=== PATIENT | female | born 1970 | race Caucasian/White ===

== ENCOUNTER 2022-04-08 00:59 | Emergency (ER) | payer MEDICAID, OTHER ==
[2022-04-08] MEDS ORDERED: ORPHENADRINE 60 MG/2 ML (NORFLEX) AMP (ED ONLY) IM STA (01:13)
[2022-04-08] MEDS ORDERED: KETOROLAC 60 MG/2 ML VIAL IM STA (01:13)
[2022-04-08] MEDS ORDERED: IBUP-1780 PO (01:19)
[2022-04-08] MEDS ORDERED: METH-732 PO (01:19)
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
[2022-04-08 01:22] VITALS: BP 132/83
== END 2022-04-08 01:24 | disposition home or self-care (01) ==
LOC: ER FS 01:02
DX: S16.1XXA Strain of muscle, fascia and tendon at neck level, initial encounter (principal); S46.812A Strain of other muscles, fascia and tendons at shoulder and upper arm level, left arm, initial encounter; G24.3 Spasmodic torticollis; Z28.310 Unvaccinated for COVID-19; V89.2XXA Person injured in unspecified motor-vehicle accident, traffic, initial encounter; Y92.410 Unspecified street and highway as the place of occurrence of the external cause
CPT/HCPCS: 99284

== ENCOUNTER 2022-05-18 17:07 | Inpatient (IN) | payer MEDICAID ==
[~2022-05-18] VITALS: Ht 157.5 cm; Wt 94.7 kg
[~2022-05-18 17:07] MED LIST: IBUP-1780 PO; METH-732 PO
[2022-05-18] MEDS ORDERED: morphine INJ 10 MG/ML 1ML (SYR OR VIAL) IVP STA (17:17)
--- NOTE | 2022-05-18 17:22 | ED Abdominal Pain ---
General Chief Complaint: Abdominal/GI Problems Stated Complaint: ABD PAIN,FEVER Source of Information: Patient Exam Limitations: No Limitations History of Present Illness Date Seen by Provider: May 18, 2022 Time Seen by Provider: 17:09 Initial Comments 52-year-old female with no pertinent past medical history coming in due to lower abdominal pain and concerns for fever. Started yesterday around 3 in the morning, woke her up, the pain is sharp, constant, nothing seems to make it better or worse. Has not taken anything for it as of yet. Does have nausea but no vomiting. Had a bowel movement this morning which was small. She states she had pain similar to this many years ago with a ruptured ovarian cyst, but did not have a fever at that time. Otherwise denies any dysuria, diarrhea, vaginal discharge, vaginal bleeding, chest pain, shortness of breath, cough, rash, or any other concerns. Has not had anything to eat today. Allergies and Home Medications Allergies Coded Allergies: No Known Drug Allergies (Unverified , 04/08/22) Patient Home Medication List Home Medication List Reviewed: Yes Ibuprofen (Ibuprofen) 800 Mg Tablet, 800 MG PO Q8H PRN for PAIN Prescribed by: LADONNA LUNA on 04/08/22118 Methocarbamol (Methocarbamol) 750 Mg Tablet, 1,500 MG PO Q8H PRN for neck/back spasm Prescribed by: LADONNA LUNA on 04/08/22118 Review of Systems Review of Systems Constitutional: fever EENTM: No Blurred Vision Respiratory: Denies Cough Cardiovascular: Denies Chest Pain Gastrointestinal: Abdominal Pain Genitourinary: Denies Burning Musculoskeletal: no symptoms reported Skin: no symptoms reported Psychiatric/Neurological: No Symptoms Reported Endocrine: No Symptoms Reported Hematologic/Lymphatic: No Symptoms Reported All Other Systems Reviewed Negative Unless Noted: Yes Past Ihzbxfd-Qloqsn-Wkaegg Hx Patient Social History Tobacco Use?: Yes Tobacco type used: Cigarettes Substance use?: No Alcohol Use?: No Past Medical History Surgery/Hospitalization HX: Anxiety Surgeries: Yes Appendectomy, Section, Gallbladder Physical Exam Vital Signs Vital Signs - First Documented 05/18/22 17:33 Temp 38.7 Pulse 136 Resp 20 B/P (MAP) 152/75 (100) Pulse Ox 94 O2 Delivery Room Air Capillary Refill : Height/Weight/BMI Height: '" Weight: lbs. oz. kg; BMI Method: General Appearance: WD/WN, mild distress HEENT: PERRL/EOMI, normal ENT inspection, pharynx normal Neck: non-tender, full range of motion, supple, normal inspection Respiratory: chest non-tender, lungs clear, normal breath sounds, no respiratory distress, no accessory muscle use Cardiovascular: no edema, no murmur, tachycardia Gastrointestinal: normal bowel sounds, soft; No distended, No guarding, No rebound; tenderness Extremities: normal range of motion, non-tender, normal inspection, no pedal edema, no calf tenderness, normal capillary refill Back: normal inspection, no CVA tenderness, no vertebral tenderness Neurologic/Psychiatric: no motor/sensory deficits, alert, normal mood/affect Skin: normal color, warm/dry Lymphatic: no adenopathy Focused Exam Lactate Level 05/18/22 17:15: Lactic Acid Level 0.97 Lactic Acid Level Laboratory Tests Test 05/18/22 17:15 Lactic Acid Level 0.97 MMOL/L (0.50-2.00) Progress/Results/Core Measures Results/Orders Lab Results Laboratory Tests Test 05/18/22 17:15 Range/Units White Blood Count 27.5 H 4.3-11.0 10^3/uL Red Blood Count 4.28 3.80-5.11 10^6/uL Hemoglobin 13.7 11.5-16.0 g/dL Hematocrit 39 35-52 % Mean Corpuscular Volume 92 80-99 fL Mean Corpuscular Hemoglobin 32 25-34 pg Mean Corpuscular Hemoglobin Concent 35 32-36 g/dL Red Cell Distribution Width 13.1 10.0-14.5 % Platelet Count 319 130-400 10^3/uL Mean Platelet Volume 9.7 9.0-12.2 fL Immature Granulocyte % (Auto) 1 % Neutrophils (%) (Auto) 81 H 42-75 % Lymphocytes (%) (Auto) 10 L 12-44 % Monocytes (%) (Auto) 8 0-12 % Eosinophils (%) (Auto) 0 0-10 % Basophils (%) (Auto) 0 0-10 % Neutrophils # (Auto) 22.3 H 1.8-7.8 10^3/uL Lymphocytes # (Auto) 2.9 1.0-4.0 10^3/uL Monocytes # (Auto) 2.1 H 0.0-1.0 10^3/uL Eosinophils # (Auto) 0.0 0.0-0.3 10^3/uL Basophils # (Auto) 0.1 0.0-0.1 10^3/uL Immature Granulocyte # (Auto) 0.2 H 0.0-0.1 10^3/uL Neutrophils % (Manual) 78 % Lymphocytes % (Manual) 11 % Monocytes % (Manual) 8 % Band Neutrophils 2 % Reactive Lymphocytes 1 % Platelet Estimate NORMAL Blood Morphology Comment NORMAL Prothrombin Time 14.4 12.2-14.7 SEC INR Comment 1.1 0.8-1.4 Activated Partial Thromboplast Time 24 24-35 SEC Urine Color DK YELLOW Urine Clarity CLEAR Urine pH 8.0 5-9 Urine Specific [place] 1.010 L 1.016-1.022 Urine Protein TRACE H NEGATIVE Urine Glucose (UA) NEGATIVE NEGATIVE Urine Ketones NEGATIVE NEGATIVE Urine Nitrite NEGATIVE NEGATIVE Urine Bilirubin NEGATIVE NEGATIVE Urine Urobilinogen 2.0 < = 1.0 MG/DL Urine Leukocyte Esterase NEGATIVE NEGATIVE Urine RBC (Auto) 1+ H NEGATIVE Urine RBC 2-5 H /HPF Urine WBC 0-2 /HPF Urine Squamous Epithelial Cells 0-2 /HPF Urine Crystals NONE /LPF Urine Bacteria TRACE /HPF Urine Casts NONE /LPF Urine Mucus MODERATE H /LPF Urine Culture Indicated CULTURE PENDING Sodium Level 134 L 135-145 MMOL/L Potassium Level 3.6 3.6-5.0 MMOL/L Chloride Level 99 98-107 MMOL/L Carbon Dioxide Level 23 21-32 MMOL/L Anion Gap 12 5-14 MMOL/L Blood Urea Nitrogen 8 7-18 MG/DL Creatinine 0.62 0.60-1.30 MG/DL Estimat Glomerular Filtration Rate 108 BUN/Creatinine Ratio 13 Glucose Level 126 H 70-105 MG/DL Lactic Acid Level 0.97 0.50-2.00 MMOL/L Calcium Level 9.3 8.5-10.1 MG/DL Corrected Calcium 9.3 8.5-10.1 MG/DL Total Bilirubin 0.8 0.1-1.0 MG/DL Aspartate Amino Transf (AST/SGOT) 12 5-34 U/L Alanine Aminotransferase (ALT/SGPT) 17 0-55 U/L Alkaline Phosphatase 59 40-136 U/L Total Protein 7.4 6.4-8.2 GM/DL Albumin 4.0 3.2-4.5 GM/DL Influenza Type A (RT-PCR) Not Detected Not Detecte Influenza Type B (RT-PCR) Not Detected Not Detecte SARS-CoV-2 RNA (RT-PCR) Not Detected Not Detecte My Orders Orders - MICHAEL JONES MD Ct Abdomen/Pelvis W (05/18/22 17:17) Influenza A And B By Pcr (05/18/22 17:17) Covid 19 Inhouse Test (05/18/22 17:17) Cbc With Automated Diff (05/18/22 17:17) Comprehensive Metabolic Panel (05/18/22 17:17) Blood Culture (05/18/22 17:17) Urinalysis (05/18/22 17:17) Urine Culture (05/18/22 17:17) Protime With Inr (05/18/22 17:17) Partial Thromboplastin Time (05/18/22 17:17) Chest 1 View Ap/Pa Only (05/18/22 17:17) Acetaminophen Tablet (Tylenol Tablet) (05/18/22 17:30) Ed Iv/Invasive Line Start (05/18/22 17:17) Ed Iv/Invasive Line Start (05/18/22 17:17) Vital Signs Adult Sepsis Patie Q15M (05/18/22 17:17) Ondansetron Injection (Zofran Injectio (05/18/22 17:30) O2 (05/18/22 17:17) Remove Rings In Anticipation O (05/18/22 17:17) Lactic Acid Analyzer (05/18/22 17:17) Ns Iv 1000 Ml (Sodium Chloride 0.9%) (05/18/22 17:30) Piperacillin Sodium/Tazobactam (Zosyn Vi (05/18/22 17:30) Morphine Injection (Morphine Injection (05/18/22 17:17) Manual Differential (05/18/22 17:15) Iohexol Injection (Omnipaque 350 Mg/Ml 1 (05/18/22 18:30) Received Contrast (Hold Metformin- Contr (05/18/22 18:30) Sodium Chloride Flush (Catheter Flush Sy (05/18/22 18:30) Ns (Ivpb) (Sodium Chloride 0.9% Ivpb Bag (05/18/22 18:30) Ed Admission (Communication) (05/18/22 19:43) Medications Given in ED Current Medications Medications Dose Ordered Sig/Davey Route Start Time Stop Time Status Last Admin Dose Admin Acetaminophen 1,000 mg ONCE PRN PO 05/18/22 17:30 05/18/22 17:30 DC 05/18/22 17:28 1,000 MG Iohexol 100 ml ONCE ONCE IV 05/18/22 18:30 05/18/22 18:31 DC 05/18/22 18:32 80 ML Ondansetron HCl 4 mg PRN PRN IV 05/18/22 17:30 05/18/22 17:30 DC 05/18/22 17:26 4 MG Piperacillin Sod/ Tazobactam Sod 4.5 gm/Sodium Chloride 100 ml @ 200 mls/hr ONCE ONCE IV 05/18/22 17:30 05/18/22 17:59 DC 05/18/22 17:28 200 MLS/HR Sodium Chloride 10 ml NEEDED PRN IV 05/18/22 18:30 05/18/22 18:32 10 ML Sodium Chloride 100 ml ONCE ONCE IV 05/18/22 18:30 05/18/22 18:31 DC 05/18/22 18:33 100 ML Vital Signs/I&O 05/18/22 17:33 Temp 38.7 Pulse 136 Resp 20 B/P (MAP) 152/75 (100) Pulse Ox 94 O2 Delivery Room Air Progress Progress Note : Progress Note 52yoF with above history coming in due to lower abd pain. Patient febrile and tachycardic on presentation. An IV was placed and patient given 2L of IVF based on IBW. Zosyn administered as well. White blood cell count elevated around 27,000, lactic acid normal, creatinine normal. I contacted Dr. Shelby who admit the patient to the intensive care unit under inpatient status for diverticulitis and severe sepsis on CT scan. I then contacted the surgeon for consultation. I also contacted the ICU doctor for signout. Of note, I recommended the patient be transferred via ambulance. She is adamant that she will not go via ambulance, and she wants her to drive her. I discussed the risk of decompensation when she is not being monitored, and she understands that risk, and signed AGAINST MEDICAL ADVICE paperwork to go via private vehicle. Her vital signs have stabilized, her heart rate has improved, she has never been hypotensive, and I think the likelihood of her decompensating on route to [place] is very unlikely. Despite this, I do think it is better to have the patient go via private vehicle and get treated appropriately with antibiotics, then to potentially go home AGAINST MEDICAL ADVICE and become more sick. Therefore, it was allowed for the patient to go private vehicle to [place]. Diagnostic Imaging Diagonstic Imaging: Xray (chest), CT (abd/pelvis with) Comments [facility]. [place], [place] NAME: FRITZ BUCHANAN [facility] REC#: [id number] PT STATUS: REG ER : 1970 PHYSICIAN: MICHAEL JONES MD ADMIT DATE: 05/18/22/ER FS Draft Date of Exam:05/18/22 CHEST 1 VIEW AP/PA ONLY INDICATION: sepsis COMPARISON: None. FINDINGS: Two frontal radiographic views of the chest were obtained and demonstrate normal heart size and pulmonary vascularity. The lungs are well aerated and clear. No large pleural effusion or pneumothorax is seen. The visualized osseous structures show no acute abnormalities. IMPRESSION: 1. No acute cardiopulmonary process. Dictated on workstation # [id number] Dict: 05/18/221815 Trans: 05/18/221817 [id number] Interpreted by: REJI MUNOZ MD Electronically signed by: Departure Impression Primary Impression: Diverticulitis of intestine Qualified Codes: K57.32 - Diverticulitis of large intestine without perforation or abscess without bleeding Additional Impression: Severe sepsis Disposition: 30 STILL A PATIENT Condition: Stable Admissions Decision to Admit Reason: Admit from ER (General) Decision to Admit/Date: May 18, 2022 Time/Decision to Admit Time: 19:40 Transfer Method of Transfer: Private Vehicle (Patient states she needs her to drive her, AMA form signed since we obviously recommended ambulance) Departure-Patient Inst. Referrals: NO,LOCAL PHYSICIAN (PCP/Family) Primary Care Physician MICHAEL JONES MD May 18, 2022 17:22
[2022-05-18] MEDS: NS IV 1000 ML 1,000 ML IV SCH ×3 (17:26→22:50)
[2022-05-18] MEDS ORDERED: ONDANSETRON 4 MG/2 ML (SDV) Z0FRAN IV PRN (17:30)
[2022-05-18] MEDS ORDERED: PIPERACILLIN SODIUM/TAZOBACTAM 4.5 GM in NS (IVPB) 100 ML IV ONE (17:30)
[2022-05-18] MEDS ORDERED: ACETAMINOPHEN 500 MG TAB (TYLENOL) PO PRN (17:30)
[2022-05-18 17:38] LABS: BILIRUBIN,URINE NEGATIVE (NEGATIVE); CLARITY,URINE CLEAR; GLUCOSE, URINE (UA) NEGATIVE (NEGATIVE); KETONES,URINE NEGATIVE (NEGATIVE); LEUKOCYTE ESTERASE ,URINE NEGATIVE (NEGATIVE); NITRITE,URINE NEGATIVE (NEGATIVE); PROTEIN,URINE TRACE (NEGATIVE)
[2022-05-18 17:43] LABS: BASOPHILS # (AUTO) 0.1 10^3/uL (0.0-0.1); BASOPHILS % (AUTO) 0 % (0-10); EOSINOPHILS % (AUTO) 0 % (0-10); HEMATOCRIT 39 % (35-52); HEMOGLOBIN 13.7 g/dL (11.5-16.0); LYMPHOCYTES # (AUTO) 2.9 10^3/uL (1.0-4.0); LYMPHOCYTES % (AUTO) 10 % (12-44); MEAN CORPUSCULAR HEMOGLOBIN 32 pg (25-34); MEAN CORPUSCULAR HGB CONC 35 g/dL (32-36); MEAN CORPUSCULAR VOLUME 92 fL (80-99); MEAN PLATELET VOLUME 9.7 fL (9.0-12.2); MONOCYTES # (AUTO) 2.1 10^3/uL (0.0-1.0); MONOCYTES % (AUTO) 8 % (0-12); NEUTROPHILS # (AUTO) 22.3 10^3/uL (1.8-7.8); NEUTROPHILS % (AUTO) 81 % (42-75); PLATELET COUNT 319 10^3/uL (130-400); WHITE BLOOD COUNT 27.5 10^3/uL (4.3-11.0)
[2022-05-18 18:01] LABS: BACTERIA,URINE TRACE /HPF; SQUAMOUS EPITHELIAL CELL,UR 0-2 /HPF; WBC,URINE 0-2 /HPF
[2022-05-18 18:02] LABS: COLOR,URINE DK YELLOW
[2022-05-18 18:05] LABS: CALCIUM 9.3 MG/DL (8.5-10.1); CREATININE SERUM 0.62 MG/DL (0.60-1.30); POTASSIUM 3.6 MMOL/L (3.6-5.0)
[2022-05-18 18:06] LABS: BILIRUBIN,TOTAL 0.8 MG/DL (0.1-1.0); TOTAL PROTEIN 7.4 GM/DL (6.4-8.2)
[2022-05-18 18:14] LABS: BAND NEUTROPHILS 2 %; LYMPHOCYTES % (MANUAL) 11 %; NEUTROPHILS % (MANUAL) 78 %
[2022-05-18 18:15] LABS: MONOCYTES % (MANUAL) 8 %; PLATELET ESTIMATE NORMAL; RBC MORPH NORMAL; REACTIVE LYMPHOCYTES 1 %
[2022-05-18 18:16] LABS: INR 1.1 (0.8-1.4); PROTHROMBIN TIME PATIENT 14.4 SEC (12.2-14.7)
--- NOTE | 2022-05-18 18:18 | Diagnostic Imaging Report ---
INDICATION: sepsis COMPARISON: None. FINDINGS: Two frontal radiographic views of the chest were obtained and demonstrate normal heart size and pulmonary vascularity. The lungs are well aerated and clear. No large pleural effusion or pneumothorax is seen. The visualized osseous structures show no acute abnormalities. IMPRESSION: 1. No acute cardiopulmonary process. Dictated by: Dictated on workstation # [id number]
[2022-05-18] MEDS ORDERED: NS 100 ML (IVPB) BAG IV ONE (18:30)
[2022-05-18] MEDS ORDERED: IOHEXOL 350 MG/ML 100 ML (OMNIPAQUE 350) VIAL IV ONE (18:30)
[2022-05-18] MEDS ORDERED: HOLD METFORMIN - RECEIVED CONTRAST 20 ML VIAL IV SCH (18:30)
[2022-05-18] MEDS: CATHETER FLUSH 10 ML SYR IV PRN (18:32)
--- NOTE | 2022-05-18 19:10 | Diagnostic Imaging Report ---
PROCEDURE: CT abdomen and pelvis with contrast. TECHNIQUE: Multiple contiguous axial images were obtained through the abdomen and pelvis after administration of intravenous contrast. Auto Exposure Controls were utilized during the CT exam to meet ALARA standards for radiation dose reduction. All CT scans use one or more of the following dose optimizing techniques: automated exposure control, MA and/or KvP adjustment based on patient size and exam type or iterative reconstruction. DATE: May 18, 2022. COMPARISON: None. INDICATION: 52-year-old female, lower abdominal pain, fever. FINDINGS: The visualized portions of the lung bases are clear. The heart is not enlarged. There is no pericardial effusion. The liver is unremarkable in size and contour. There is no identified liver lesion. The main, right and left portal veins are patent. The gallbladder surgically absent. There is no biliary ductal dilation. The main pancreatic duct is not abnormally dilated. Unremarkable appearance of the pancreatic parenchyma. The spleen is normal in size. There is a right adrenal nodule on axial image 32 which measures 3.5 cm in size. Internal attenuation on this postcontrast exam is 52 Hounsfield units. This is indeterminate. There is also an indeterminate 3 cm left renal lesion with internal attenuation on postcontrast imaging of 44 Hounsfield units. There is a punctate nonobstructing 1 mm left renal stone on axial image 80. There is a 3 mm low-attenuation left renal lesion too small to characterize. The urinary collecting systems are not distended. There is a calcification along the expected course of the left ureter. This potentially could relate to a ureteral stone or phlebolith. This measures approximately 1 to 2 mm in size. The distal ureter on the left is difficult to visualize at this level. The urinary bladder is grossly unremarkable in appearance. There is extensive abnormal wall thickening of the mid to distal sigmoid colon with very prominent adjacent inflammatory stranding. There is diverticular disease at this location. There is adjacent free fluid including extending into the presacral space. There is no identified well-demarcated drainable fluid collection or mature abscess at this time. There is no evidence of acute appendicitis. There is no free intraperitoneal air. There are atherosclerotic calcifications. There are small subcentimeter pericolonic lymph nodes near the wall thickening of the sigmoid colon with one example seen on axial image 140. There is an additional example on axial image 129 and also on axial image 118. These lymph nodes measure up to approximately 8 mm short axis. There are sclerotic lesions of the left pubic bones likely reflecting benign bone islands. There is no additional identified bone lesion in the included [id number]. IMPRESSION: CT abdomen and pelvis: 1. Extensive abnormal wall thickening of the mid to distal sigmoid colon which is in an area of diverticular disease. There is also extensive inflammatory stranding and adjacent free fluid without drainable fluid collection or abscess. This potentially may reflect acute diverticulitis. Colonic malignancy at this site cannot be excluded. There are pericolonic lymph nodes present. 2. Indeterminate bilateral adrenal nodules. Dedicated renal mass protocol CT without and with intravenous contrast is recommended for further evaluation on a nonemergent basis. Dictated by: Dictated on workstation # [id number]
[2022-05-18] MEDS ORDERED: MELATONIN 3 MG TABLET PO PRN (21:45)
[2022-05-18] MEDS ORDERED: BISACODYL 10 MG SUPP (DULCOLAX) PR PRN (21:45)
[2022-05-18] MEDS ORDERED: diphenhydrAMINE 50 MG/ML INJ (BENADRYL) IVP PRN (21:45)
[2022-05-18] MEDS ORDERED: diphenhydrAMINE 25 MG TAB (BENADRYL) PO PRN (21:45)
[2022-05-18] MEDS ORDERED: ALPRAZolam 0.5 MG (XANAX) TAB PO PRN (21:45)
[2022-05-18] MEDS ORDERED: ANTACID SUSP 30 ML UDC (MYLANTA) PO PRN (21:45)
[2022-05-18] MEDS ORDERED: ONDANSETRON 4 MG (ZOFRAN) ORAL DISSOLVE TAB PO PRN (21:45)
[2022-05-18] MEDS ORDERED: cloNIDine 0.1 MG (CATAPRES) TAB PO PRN (21:45)
[2022-05-18] MEDS ORDERED: polyethylene glycoL POWDER 17 GM (MIRALAX) PACK PO PRN (21:45)
--- NOTE | 2022-05-18 22:31 | Tele-ICU Progress Note ---
Subjective Date Seen by a Provider: May 18, 2022 Subjective/Events-last exam Laptop not working/ unable to visualize. Per nursing patient Hemodynamically stable Available charting reviewed, discussed with RN No need for Tele-ICU interventions Plans as delineated by bedside physicians / consultants 52 y/o F with no significant PMHx presented to ED with c/o abdominal pain and fevers X 24 hours found to have extensive diverticulosis. admitted to MICU for concern for sepsis (hypotensive on presentation). Labs notable for elevated leukocytosis of 27. Ct adb notable fo extensive diverticulitis however no signs of abscess. Upon arrival to MICU patient BP improved. At this time agree with IVF resuscitation for possible septic shock. Pancultured and agree with broad spectrum antibiotics. Surgery consulted for source control. Appreciate recs. Sepsis Event Evaluation Height, Weight, BMI Height: '" Weight: lbs. oz. kg; BMI Method: Focused Exam Lactate Level 05/18/22 17:15: Lactic Acid Level 0.97 Exam Exam Patient acknowledged, consented, and participated in this virtual visit which was conducted using real time audio/video Vital Signs Date Time Temp Pulse Resp B/P (MAP) Pulse Ox O2 Delivery O2 Flow Rate FiO2 05/18/22 21:43 37.3 114 18 121/61 (81) 97 Room Air 05/18/22 20:19 109 18 146/72 98 Room Air 05/18/22 17:33 38.7 136 20 152/75 (100) 94 Room Air Height & Weight Height: '" Weight: lbs. oz. kg; BMI Method: General Appearance: No Apparent Distress Neck: Full Range of Motion Respiratory: Chest Non Tender Cardiovascular: Regular Rate, Rhythm Capillary Refill: Less Than 3 Seconds Gastrointestinal: normal bowel sounds, soft; No distended, No guarding, No rebound; tenderness Results Lab Laboratory Tests 05/18/22 17:[address] a/p (05/18/22): 1. Extensive abnormal wall thickening of the mid to distal sigmoid colon which is in an area of diverticular disease. There is also extensive inflammatory stranding and adjacent free fluid without drainable fluid collection or abscess. This potentially may reflect acute diverticulitis. Colonic malignancy at this site cannot be excluded. There are pericolonic lymph nodes present. 2. Indeterminate bilateral adrenal nodules. Dedicated renal mass protocol CT without and with intravenous contrast is recommended for further evaluation on a nonemergent basis. Assessment/Plan Assessment/Plan See above EB CHAUDHARI MD May 18, 2022 22:31
[2022-05-18] MEDS ORDERED: RT-ALBUTEROL/IPRATROPIUM 3 ML (DUONEB) VIAL INH PRN (23:00)
[2022-05-19] MEDS: ENOXAPARIN 40 MG/0.4 ML (LOVENOX) SYR SC SCH ×3 (01:00→19:37)
[2022-05-19] MEDS: PIPERACILLIN SODIUM/TAZOBACTAM 4.5 GM in NS (IVPB) 100 ML IV SCH ×4 (01:00→23:37)
[2022-05-19] MEDS: ACETAMINOPHEN 325 MG TABLET PO PRN ×3 (02:37→23:37)
[2022-05-19] MEDS: ONDANSETRON 4 MG/2 ML (SDV) Z0FRAN IV PRN ×3 (02:37→18:06)
[2022-05-19 05:05] LABS: BASOPHILS # (AUTO) 0.1 10^3/uL (0.0-0.1); BASOPHILS % (AUTO) 0 % (0-10); EOSINOPHILS # (AUTO) 0.2 10^3/uL (0.0-0.3); EOSINOPHILS % (AUTO) 1 % (0-10); HEMATOCRIT 35 % (35-52); HEMOGLOBIN 11.5 g/dL (11.5-16.0); LYMPHOCYTES # (AUTO) 2.1 10^3/uL (1.0-4.0); LYMPHOCYTES % (AUTO) 10 % (12-44); MEAN CORPUSCULAR HEMOGLOBIN 32 pg (25-34); MEAN CORPUSCULAR HGB CONC 33 g/dL (32-36); MEAN CORPUSCULAR VOLUME 97 fL (80-99); MEAN PLATELET VOLUME 9.6 fL (9.0-12.2); MONOCYTES # (AUTO) 1.6 10^3/uL (0.0-1.0); MONOCYTES % (AUTO) 8 % (0-12); NEUTROPHILS # (AUTO) 16.8 10^3/uL (1.8-7.8); NEUTROPHILS % (AUTO) 81 % (42-75); PLATELET COUNT 240 10^3/uL (130-400); WHITE BLOOD COUNT 20.9 10^3/uL (4.3-11.0)
[2022-05-19 05:31] LABS: ALBUMIN 3.3 GM/DL (3.2-4.5); BILIRUBIN,TOTAL 1.1 MG/DL (0.1-1.0); CALCIUM 8.4 MG/DL (8.5-10.1); CREATININE SERUM 0.69 MG/DL (0.60-1.30); MAGNESIUM 1.5 MG/DL (1.6-2.4); PHOSPHORUS 2.4 MG/DL (2.3-4.7); POTASSIUM 3.4 MMOL/L (3.6-5.0); TOTAL PROTEIN 6.1 GM/DL (6.4-8.2)
[2022-05-19] MEDS ORDERED: NS IV 500 ML 500 ML IV PRN (05:45)
[2022-05-19] MEDS ORDERED: KCL 20 MEQ TAB (K-DUR) PO SCH (06:00)
[2022-05-19] MEDS ORDERED: MAGNESIUM 1 GM/100 ML IVPB 100 ML IV SCH (06:00)
[2022-05-19] MEDS ORDERED: POTASSIUM CL 10MEQ/50ML IVPB 50 ML IV SCH (06:00)
[2022-05-19] MEDS ORDERED: MAGNESIUM 1 GM/100 ML IVPB 200 ML IV ONE (06:01)
[2022-05-19] MEDS ORDERED: POTASSIUM CL 10MEQ/50ML IVPB 100 ML IV ONE (06:02)
[2022-05-19] MEDS: NS IV 1000 ML 1,000 ML IV SCH ×3 (06:08→19:35)
[2022-05-19] MEDS: POTASSIUM CL 10MEQ/50ML IVPB 50 ML IV SCH ×2 (06:09→07:08)
[2022-05-19] MEDS: MAGNESIUM 1 GM/100 ML IVPB 100 ML IV SCH ×2 (06:09→07:08)
[2022-05-19] MEDS: RT-ALBUTEROL/IPRATROPIUM 3 ML (DUONEB) VIAL INH SCH ×2 (08:39→20:04)
[2022-05-19] MEDS: PANTOPRAZOLE 40 MG (PROTONIX) TAB PO SCH (09:33)
[2022-05-19] MEDS: DOCUSATE SODIUM 100 MG (COLACE) CAP PO SCH ×2 (09:33→19:32)
[2022-05-19] MEDS ORDERED: NICOTINE 21 MG (NICODERM) PATCH TD ONE (10:45)
--- NOTE | 2022-05-19 10:46 | Tele-ICU Consult ---
History of Present Illness History of Present Illness Date Seen by Provider: May 19, 2022 Time Seen by Provider: 10:43 Date of Admission (Tele-ICU Physician , consultation as per request of PCP Service provided via interactive audio and video [employer] E-CARE system to a patient admitted to ICU bed in [facility]. Available chart/ vitals / labs / Images reviewed H&P is from ER notes Patient's information available about PMH, Shx, Fhx allergy reviewed inEMR. ROS as per chart and RN report see dr Mcmillan note last night Now in ICU, hemodynamically stable Video assessment done using teleICU camera, rest of exam as per RN Discussed with RN. Consultants: sx Hospital course: (05/18) 52yr F admitted for severe sepsis diverticulitis/no perforation or abscess A/P severe sepsis - received IVF resuscitation - vitals stabel now diverticulitis /no perforation or abscess - abx initiated , sx consulted ( as per CT : Colonic malignancy at this site cannot be excluded. There are pericolonic lymph nodes Leukocytosis due to above - UA neg , flu/ covid neg Cont hydration replace lytes Lines : , (Central Line Necessity Reviewed) Howard: OG: Nutrition: Analgesia: Anxiety/ delirium VTE Prophylaxis: lacie 40 Stress Ulcer Prophylaxis: Plans in collaboration with bedside consultants and IM MDs. Discussed with RN to reach out if any questions or concerns A total of 32 minutes of critical care time was devoted to this patient today, required to treat and/or prevent further deterioration of critical care condition ( as above ) . I am remotely monitoring this patient from another state. I am unable to do the bedside exam, and history/physical and pertinent information is taken from other notes in the computer and bedside staff. Allergies and Home Medications Allergies Coded Allergies: No Known Drug Allergies (Unverified , 04/08/22) Home Medications Ibuprofen 800 Mg Tablet, 800 MG PO Q8H PRN for PAIN Prescribed by: LADONNA Guzman ENRADHART on 04/08/22118 Methocarbamol 750 Mg Tablet, 1,500 MG PO Q8H PRN for neck/back spasm Prescribed by: LADONNA Guzman ENYART on 04/08/22118 Past Medical/Social/Family Hx Patient Social History Tobacco Use?: Yes Tobacco type used: Cigarettes Smoking Status: Current Everyday Smoker Use of E-Cig and/or Vaping dev: No Substance use?: No Alcohol Use?: No Pt stated abuse/neglect: No Immunizations Up To Date Influenza Vaccine Up-to-Date: No; Not Current First/Initial COVID19 Vaccinat: Denies Current Status Advance Directives: No Communicates: Verbally Primary Language: Latvian Preferred Spoken Language: Latvian Is interpretation needed?: No Review of Systems Constitutional: see HPI Focused Exam Lactate Level 05/18/22 17:15: Lactic Acid Level 0.97 Height, Weight, BMI Height: '" Weight: lbs. oz. kg; 36.48 BMI Method: Exam Exam Patient acknowledged, consented, and participated in this virtual visit which was conducted using real time audio/video Vital Signs Date Time Temp Pulse Resp B/P (MAP) Pulse Ox O2 Delivery O2 Flow Rate FiO2 05/19/22 10:00 93 14 124/75 (91) 96 Nasal Cannula 1.00 05/19/22 09:00 91 28 85/52 (63) 96 Room Air 05/19/22 08:39 94 Nasal Cannula 1.00 05/19/22 08:00 90 13 104/62 (76) 92 Nasal Cannula 1.00 05/19/22 08:00 94 Room Air 05/19/22 08:00 36.3 05/19/22 07:00 85 05/19/22 07:00 86 11 96/66 (76) 94 Nasal Cannula 1.00 05/19/22 06:00 97 14 100/66 (77) 93 Room Air 05/19/22 05:00 90 25 100/63 (75) 97 Room Air 05/19/22 04:00 94 Room Air 05/19/22 04:00 98 24 97/57 (70) 91 Room Air 05/19/22 03:00 98 26 114/72 (86) 92 Room Air 05/19/22 02:37 37.9 05/19/22 02:32 37.9 05/19/22 02:00 91 19 105/62 (76) 92 Room Air 05/19/22 01:00 100 05/19/22 01:00 98 108/63 (78) 91 Room Air 05/19/22 00:00 37.4 05/18/22 23:59 93 Room Air 05/18/22 23:30 98 33 103/56 (72) 90 Room Air 05/18/22 23:00 91 21 100/56 (71) 92 Room Air 05/18/22 22:48 97 Room Air 05/18/22 22:30 96 23 111/63 (79) 95 Room Air 05/18/22 22:15 100 14 94/56 (69) 94 Room Air 05/18/22 22:00 107 11 90/51 (64) 94 Room Air 05/18/22 21:48 107 05/18/22 21:45 93 Room Air 05/18/22 21:43 37.3 114 18 121/61 (81) 97 Room Air 05/18/22 20:19 109 18 146/72 98 Room Air 05/18/22 17:33 38.7 136 20 152/75 (100) 94 Room Air I & O 05/19/22 07:00 Intake Total 3420 ml Balance 3420 ml Height & Weight Height: '" Weight: lbs. oz. kg; 36.48 BMI Method: General Appearance: No Apparent Distress Neck: Full Range of Motion Respiratory: Chest Non Tender Cardiovascular: Regular Rate, Rhythm Capillary Refill: Less Than 3 Seconds Gastrointestinal: normal bowel sounds, soft; No distended, No guarding, No rebound; tenderness Results Lab Laboratory Tests 05/18/22 17:15 05/19/22 04:32 Assessment/Plan Assessment/Plan 1 ARTIE THOMAS MD May 19, 2022 10:46
[2022-05-19] MEDS: KETOROLAC 30 MG/ML VIAL IV PRN ×2 (10:48→18:06)
--- NOTE | 2022-05-19 10:56 | Occupational Therapy Eval ---
OT Evaluation-General/PLF Medical Diagnosis Admission Date May 18, 2022 at 21:30 Medical Diagnosis: Diverticulitis Onset Date: May 18, 2022 Therapy Diagnosis Therapy Diagnosis: N/A Precautions Precautions/Isolations: Standard Precautions Referral Physician: Afsaneh Kaye Reason: Evaluation/Treatment Medical History Pertinent Medical History: Diverticulitis, Smoking Current History Pt came to ER with complaints with lower abdominal pain and a fever. Pt is independent with all ADLs and IADLs. 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 She lives with her in a multi-level home, but only stays on the main floor. Reviewed History: Yes Social History Home: Multilevel (is able to and only stays on the first floor) Current Living Status: Spouse ADL-Prior Level of Function SCALE: Activities may be completed with or without assistive devices. 9-Vrccypizic-tcaktwm completes the activity by him/herself with no assistance from a helper. 5-Set-up or Clean-up Assistance-helper sets up or cleans up; patient completes activity. [place] assists only prior to or following the activity. 4-Supervision or Touching Assistance-helper provides verbal cues and/or touching/steadying and/or contact guard assistance as patient completes activity. Assistance may be provided throughout the activity or intermittently. 3-Partial/Moderate Assistance-helper does LESS THAN HALF the effort. [place] lifts, holds or supports trunk or limbs, but provides less than half the effort. 2-Substantial/Maximal Assistance-helper does MORE THAN HALF the effort. [place] lifts or holds trunk or limbs and provides more than half the effort. 1-Zozbzmqgs-lkrhry does ALL the effort. Patient does none of the effort to complete the activity. Or, the assistance of 2 or more helpers is required for the patient to complete the activity. If activity was not attempted, code reason: 7-Patient Refused. 9-Not Applicable-not attempted and the patient did not perform the activity before the current illness, exacerbation or injury. 10-Not Attempted due to Environmental Limitations-(lack of equipment, weather restraints, etc.). 88-Not Attempted due to Medical Conditions or Safety Concerns. Self Care: Independent Functional Cognition: Independent DME/Equipment: Shower [address] Self: Yes OT Current Status Subjective Pt was laying in bed with present. She was in a lot of pain (did not rate) but did agree to a therapy eval. Appearance Pt was left laying in bed with all needs within reach. Mental Status/Objective Patient Orientation: Person, Place, Time, Situation Attachments: IV, Telemetry Current Glasses/Contacts: Yes Hearing Aids: No Dentures/Partials: No Hand Dominance: Right Upper Extremity ROM WNL Upper Extremity Strength 5/5 at shoulders Program Management Professional strength: intact ADL-Treatment Oral Hygiene (QC): 6 Upper Body Dressing (QC): 6 (per clinical judgement) Lower Body Dressing (QC): 6 On/Off Footwear (QC): 6 Toileting Hygiene (QC): 6 Bed mobility: independent. Sit<>stand: independent. Pt able to reach her feet and doff/don her socks with independence. She had good dynamic standing balance. She took a few steps towards HOB with no AD and no LOB. Pt and pt's reports no concerns with any self-care tasks, as well as nothing was visually concerning during today's eval. Pt does not require skilled OT services at this time,as she is independent with all ADLs. Education OT Patient Education: Progress toward Goal/Update tx plan, Rehab process Teaching Recipient: Patient Teaching Methods: Discussion Response to Teaching: Verbalize Understanding, Return Demonstration OT Manager Photo Goals Retirement Goals 1=Demonstrate adherence to instructed precautions during ADL tasks. 2=Patient will verbalize/demonstrate understanding of assistive devices/modifications for ADL. 3=Patient will improve strength/tolerance for activity to enable patient to p erform ADL's. OT Education/Plan Problem List/Assessment Assessment: No Skilled OT Needs ID'd Discharge Recommendations Plan/Recommendations: Discontinue OT Therapy Discharge Recommendati: Home & Family Treatment Plan/Plan of Care Treatment,Training & Education: Yes Patient would benefit from OT for education, treatment and training to promote independence in ADL's, mobility, safety and/or upper extremity function for ADL's. Plan of Care: ADL Retraining, Functional Mobility Treatment Duration: May 19, 2022 Frequency: 1 time per week Agreement: Yes Time Start Time: 10:21 Stop Time: 10:30 DATE: May 19, 2022 Total Time Billed (hr/min): 9 Billed Treatment Time 1 visit Anastasiia Goins OT May 19, 2022 10:56
--- NOTE | 2022-05-19 11:18 | Physical Therapy Evaluation ---
PT Evaluation-General Medical Diagnosis Admission Date May 18, 2022 at 21:30 Medical Diagnosis: Diverticulitis Onset Date: May 18, 2022 Therapy Diagnosis Therapy Diagnosis: Independent with Mobility Weight Bear Status Right Lower Extremity: Right Full Weight Bearing Left Lower Extremity: Left Full Weight Bearing Referral Physician: Yanira Shelby DO Reason for Referral: Evaluation/Treatment Medical History Pertinent Medical History: Diverticulitis, Smoking Additional Medical History Surgery/Hospitalization HX: Anxiety Surgeries: Yes Appendectomy, Section, Gallbladder Reviewed History: Yes Social History Home: Single Level Current Living Status: Spouse Has stairs but they dont use them Prior Prior Level of Function SCALE: Activities may be completed with or without assistive devices. 2-Vpwnplqkfr-sjrwovl completes the activity by him/herself with no assistance from a helper. 5-Set-up or Clean-up Assistance-helper sets up or cleans up; patient completes activity. [place] assists only prior to or following the activity. 4-Supervision or Touching Assistance-helper provides verbal cues and/or touching/steadying and/or contact guard assistance as patient completes activity. Assistance may be provided throughout the activity or intermittently. 3-Partial/Moderate Assistance-helper does LESS THAN HALF the effort. [place] lift s, holds or supports trunk or limbs, but provides less than half the effort. 2-Substantial/Maximal Assistance-helper does MORE THAN HALF the effort. [place] lifts or holds trunk or limbs and provides more than half the effort. 0-Ngkbpjllp-xixnwb does ALL the effort. Patient does none of the effort to complete the activity. Or, the assistance of 2 or more helpers is required for the patient to complete the activity. If activity was not attempted, code reason: 7-Patient Refused. 9-Not Applicable-not attempted and the patient did not perform the activity before the current illness, exacerbation or injury. 10-Not Attempted due to Environmental Limitations-(lack of equipment, weather restraints, etc.). 88-Not Attempted due to Medical Conditions or Safety Concerns. Bed Mobility: 6 Transfers (B,C,W/C): 6 Gait: 6 Stairs: 6 Indoor Mobility (Ambulation): Independent Stairs: Independent Prior Devices Use: None PT Evaluation-Current Subjective Patient in bed pre-tx, reports pain in abdomen 7-8/10, agrees to PT. Pt/Family Goals Return to independence at home Objective Patient Orientation: Person, Place, Situation Attachments: IV ROM/Strength ROM Lower Extremities WFL Strength Lower Extremities BLE's grossly 5/5 Neuromuscular (Tone, Coordination, Reflexes) Coordination intact Sensory Hearing: Functional Hand Dominance: Right Sensation Right Lower Extremit: Intact Sensation Left Lower Extremity: Intact Transfers Roll Left to Right (QC): 6 Sit to Lying (QC): 6 Lying to Sitting/Side of Bed(Q: 6 Sit to Stand (QC): 6 Gait Does the Patient Walk?: Yes Mode of Locomotion: Walk Anticipated Mode of Locomotion: Walk Walk 10 feet (QC): 6 Distance: 20' Gait Assistive Device: None Comments/Gait Description Patient independent with walking, does not require any assistance or assistive device. Wheelchair Training Does the Pt Use a Wheelchair?: No Balance Sitting Static: Normal Sitting Dynamic: Normal Standing Static: Normal Standing Dynamic: Normal Treatment Ambulation, Patient educated on exercises but refused to do them due to pain. Assessment/Needs independent with mobility, patient will be discharged from PT services at this time Rehab Potential: Fair PT Plan Treatment/Plan Treatment Plan: Discontinue PT Treatment Duration: May 19, 2022 Frequency: Patient and/or Family Agrees t: Yes Safety Risks/Education Patient Education: Gait Training, Transfer Techniques, Correct Positioning, Safety Issues Teaching Recipient: Patient Teaching Methods: Demonstration, Discussion Response to Teaching: Verbalize Understanding Discharge Recommendations Plan DC Therapy Discharge Recommendati: Home & Family Time Time In: 1046 Time Out: 1056 DATE: May 19, 2022 Total Billed Treatment Time: 10 Total Billed Treatment 1 visit EVL 10min GEORGIA AVILA PT May 19, 2022 11:18
[2022-05-19] MEDS ORDERED: CLON0.5T4 PO (11:20)
[2022-05-19] MEDS ORDERED: ALBU18HF2 INH (11:20)
--- NOTE | 2022-05-19 11:36 | Progress Note ---
Standard Progress Note Progress Notes/Assess & Plan Date Seen by a Provider: May 19, 2022 Time Seen by a Provider: 10:00 Progress/Assessment & Plan PE: chest-few scattered rhales bilat heart-regular. heent-no scleral icterus, no cervical adenopathy. extr-no LE, neg homans. abd-soft, tenderness rlq, no rebound. Focused Exam Lactate Level 05/18/22 17:15: Lactic Acid Level 0.97 HILLARY GLYNN MD May 19, 2022 11:36
--- NOTE | 2022-05-19 12:54 | History & Physical-Hospitalist ---
ANNABELLEROB Debbie 05/19/22 1254: History of Present Illness HPI/Chief Complaint Patient is a 52 yo woman who presented to the ER with lower abdominal pain and fever. She describes the pain as sharp and constant and notes that it is somewhat similar to what she experienced when she had a ruptured ovarian cyst. Past medical history of anxiety. Past surgical history of appendectomy, C- section, and gallbladder. CT of abdomen showed possible acute diverticulitis, but could not exclude colonic malignancy. CT also found indeterminant bilateral adrenal nodules. WBC of 20.9 down from 27.5, neutrophil predominant. Chemistry was fairly unremarkable. Vitals at time of exam was a temperature of 36.3, HR of 90, and BP of 104/62. She was given albuterol/ipratropium, KCl, magnesium sulfate dextrose, piperacillin/tazobactam, oxydocone for pain. Patient refused enoxaparin. She states that she is feeling better today and that her pain is improved. She states that she is hungry and notes chills and nausea without vomiting that she relates to her pain medications. Denies SOB, chest pain, and notes that her last BM was yesterday morning. Source: patient, family, RN/, RN notes reviewed, old records Exam Limitations: no limitations Date Seen 05/19/22 Time Seen by a Provider: 08:45 Attending Physician No,Local Physician PCP Admitting Physician: Yanira Mcgrath DO Attending Physician: Yanira Mcgrath DO Referring Physician Date of Admission May 18, 2022 at 21:30 Home Medications & Allergies Home Medications Reviewed patient Home Medication Reconciliation performed by pharmacy medication reconciliations mechanical technician and/or nursing. Patients Allergies have been reviewed. Allergies Allergies Coded Allergies No Known Drug Allergies (Unverified04/08/22) Past Igqkkak-Fsfnwe-Glfhom Hx Patient Social History Tobacco Use?: Yes Tobacco type used: Cigarettes Smoking Status: Current Everyday Smoker Use of E-Cig and/or Vaping dev: No Substance use?: No Alcohol Use?: No Pt feels they are or have been: No Immunizations Up To Date First/Initial COVID19 Vaccinat: Denies Current Status Advance Directives: No Communicates: Verbally Primary Language: Australian Preferred Spoken Language: Australian Is interpretation needed?: No Past Medical History Surgeries: Appendectomy, Section, Gallbladder Ruptured ovarian cyst Review of Systems Constitutional: see HPI, chills; No dizziness, No fever EENTM: see HPI, no symptoms reported Respiratory: no symptoms reported, see HPI; No cough, No short of breath Cardiovascular: no symptoms reported; No chest pain, No palpitations, No syncope Gastrointestinal: see HPI, abdominal pain (Occurs in a band-like pattern across the lower abdomen); No diarrhea, No loss of appetite; nausea; No vomiting Genitourinary: frequency Musculoskeletal: no symptoms reported, see HPI Skin: no symptoms reported, see HPI Psychiatric/Neurological: No Symptoms Reported, See HPI; Denies Headache Physical Exam Physical Exam Vital Signs Vital Signs - First Documented 05/18/22 17:33 Temp 38.7 Pulse 136 Resp 20 B/P (MAP) 152/75 (100) Pulse Ox 94 O2 Delivery Room Air Capillary Refill : Less Than 3 Seconds Height, Weight, BMI Height: 157.5 cm Weight: 90.5 kg; 36.48 BMI Method: General Appearance: Anxious, Mild Distress HEENT: PERRL/EOMI Neck: Full Range of Motion, Normal Inspection, Non Tender, Supple; No Carotid Bruit, No JVD Respiratory: Chest Non Tender, Lungs Clear, Normal Breath Sounds, No Accessory Muscle Use, No Respiratory Distress Cardiovascular: Regular Rate, Rhythm, No Edema, No Gallop, No JVD, No Murmur, Normal Peripheral Pulses Gastrointestinal: Normal Bowel Sounds, No Organomegaly, No Pulsatile Mass, Soft, Tenderness (Tenderness to palpation in RLQ and LLQ in a band-like pattern overlying the bladder and surrounding tissues) Back: Normal Inspection, No CVA Tenderness Extremity: Normal Capillary Refill, Normal Inspection, Non Tender, No Calf Tenderness Neurologic/Psychiatric: Alert, Oriented x3, No Motor/Sensory Deficits, Normal Mood/Affect Skin: Normal Color, Warm/Dry Lymphatic: No Adenopathy Results Results/Procedures Labs Laboratory Tests 05/18/22 17:15 05/19/22 04:32 Patient resulted labs reviewed. Imaging Date of Exam:05/18/22 CHEST 1 VIEW AP/PA ONLY INDICATION: sepsis COMPARISON: None. FINDINGS: Two frontal radiographic views of the chest were obtained and demonstrate normal heart size and pulmonary vascularity. The lungs are well aerated and clear. No large pleural effusion or pneumothorax is seen. The visualized osseous structures show no acute abnormalities. IMPRESSION: 1. No acute cardiopulmonary process. Dictated by: Dictated on workstation # [id number] Dict: 05/18/22 1816 Trans: 05/19/22 1032 [id number] Interpreted by: REJI MUNOZ MD Electronically signed by: REJI MUNOZ MD 05/19/22 1032 Date of Exam:05/18/22 CT ABDOMEN/PELVIS W PROCEDURE: CT abdomen and pelvis with contrast. TECHNIQUE: Multiple contiguous axial images were obtained through the abdomen and pelvis after administration of intravenous contrast. Auto Exposure Controls were utilized during the CT exam to meet ALARA standards for radiation dose reduction. All CT scans use one or more of the following dose optimizing techniques: automated exposure control, MA and/or KvP adjustment based on patient size and exam type or iterative reconstruction. DATE: May 18, 2022. COMPARISON: None. INDICATION: 52-year-old female, lower abdominal pain, fever. FINDINGS: The visualized portions of the lung bases are clear. The heart is not enlarged. There is no pericardial effusion. The liver is unremarkable in size and contour. There is no identified liver lesion. The main, right and left portal veins are patent. The gallbladder surgically absent. There is no biliary ductal dilation. The main pancreatic duct is not abnormally dilated. Unremarkable appearance of the pancreatic parenchyma. The spleen is normal in size. There is a right adrenal nodule on axial image 32 which measures 3.5 cm in size. Internal attenuation on this postcontrast exam is 52 Hounsfield units. This is indeterminate. There is also an indeterminate 3 cm left renal lesion with internal attenuation on postcontrast imaging of 44 Hounsfield units. There is a punctate nonobstructing 1 mm left renal stone on axial image 80. There is a 3 mm low-attenuation left renal lesion too small to characterize. The urinary collecting systems are not distended. There is a calcification along the expected course of the left ureter. This potentially could relate to a ureteral stone or phlebolith. This measures approximately 1 to 2 mm in size. The distal ureter on the left is difficult to visualize at this level. The urinary bladder is grossly unremarkable in appearance. There is extensive abnormal wall thickening of the mid to distal sigmoid colon with very prominent adjacent inflammatory stranding. There is diverticular disease at this location. There is adjacent free fluid including extending into the presacral space. There is no identified well-demarcated drainable fluid collection or mature abscess at this time. There is no evidence of acute appendicitis. There is no free intraperitoneal air. There are atherosclerotic calcifications. There are small subcentimeter pericolonic lymph nodes near the wall thickening of the sigmoid colon with one example seen on axial image 140. There is an additional example on axial image 129 and also on axial image 118. These lymph nodes measure up to approximately 8 mm short axis. There are sclerotic lesions of the left pubic bones likely reflecting benign bone islands. There is no additional identified bone lesion in the included [id number]. IMPRESSION: CT abdomen and pelvis: 1. Extensive abnormal wall thickening of the mid to distal sigmoid colon which is in an area of diverticular disease. There is also extensive inflammatory stranding and adjacent free fluid without drainable fluid collection or abscess. This potentially may reflect acute diverticulitis. Colonic malignancy at this site cannot be excluded. There are pericolonic lymph nodes present. 2. Indeterminate bilateral adrenal nodules. Dedicated renal mass protocol CT without and with intravenous contrast is recommended for further evaluation on a nonemergent basis. Dictated by: Dictated on workstation # [id number] Dict: 05/18/22 1838 Trans: 05/18/221949 [id number] Interpreted by: MELCHOR IZQUIERDO MD Electronically signed by: MELCHOR IZQUIERDO MD 05/18/221949 Meds Patient administered protonix, ondansetron, docusate sodium, albuterol/ipra tropium, nicoderm patch. Ketorolac and oxycodone for pain control. NaCl IV. Piperacillin/tazobactam for infection as well as acetominophen. Magnesium sulfate/dextrose and potassium chloride series complete. Assessment/Plan Admission Diagnosis Acute diverticulitis Admission Status: Inpatient Order (span 2 midnights) Reason for Inpatient Admission: Patient admission necessary for administration of IV antibiotics, fluids and other medications. Patient is acutely ill and requires extensive monitoring and labwork to ensure proper treatment and safety. Assessment and Plan Acute diverticulitis - Continue fluid resuscitation and broad spectrum IV antibiotics. Continue monitoring for signs of improvement or worsening of symptoms or infectious course. Continue pain and nausea management. Bilateral indeterminate adrenal masses - follow-up in non-emergent setting with CT with and without contrast Tobacco use - continue nicotine patch as needed YANIRA MCGRATH DO 05/19/222100: History of Present Illness HPI/Chief Complaint CC: Abdominal pain with new diverticulitis HPI: This is a 52 yr old female with essentially no medical history. She presented to the ER with abdominal pain and was found to have severe diverticulitis on CT scan. Pt was placed in the ICU due to hypotension, fever, and sepsis. She was placed on Zosyn. Dr. Bloom consulted. Source: patient, family Assessment/Plan Admission Diagnosis Admission Status: Inpatient Order (span 2 midnights) Reason for Inpatient Admission: severe sepsis Supervisory-Addendum Brief Verification & Attestation Participated in pt care: history, MDM, physical Personally performed: exam, history, MDM, supervision of care Care discussed with: Medical Student Procedures: n/a Results interpretation: Verified all documentation Verification and Attestation of Medical Student E/M Service A medical student performed and documented this service in my presence. I reviewed and verified all information documented by the medical student and made modifications to such information, when appropriate. I personally performed the physical exam and medical decision making. Yanira Mcgrath, May 19, 2022,21:00 ROB ALANIS May 19, 2022 12:54 YANIRA MCGRATH DO May 19, 2022 21:01
[2022-05-19 15:26] VITALS: BP 113/57
[2022-05-19 19:07] VITALS: BP 116/72
[2022-05-19] MEDS ORDERED: NICOTINE 21 MG (NICODERM) PATCH ONE (21:00)
[2022-05-19] MEDS: NICOTINE 21 MG (NICODERM) PATCH TD SCH (21:03)
[2022-05-20] VITALS (8 sets, daily range): BP systolic 110–135; BP diastolic 62–81
[2022-05-20] MEDS: KETOROLAC 30 MG/ML VIAL IV PRN ×3 (03:25→22:09)
--- NOTE | 2022-05-20 05:20 | Consultation - Surgery ---
History of Present Illness History of Present Illness Patient Consulted On(yas/time) 05/20/22 05:12 Date Seen by Provider: May 20, 2022 Time Seen by Provider: 05:12 Allergies and Home Medications Allergies Coded Allergies: No Known Drug Allergies (Unverified , 04/08/22) Patient Home Medication List Home Medication List Reviewed: Yes Albuterol Sulfate (Ventolin Hfa) 90 Mcg Hfa.aer.ad, 2 PUFF INH Q6H PRN for SHORTNESS OF BREATH, (Reported) Entered as Reported by: INDIRA MORAN on 05/19/221119 Last Action: Reviewed Clonazepam (Clonazepam) 0.5 Mg Tablet, 0.5 MG PO DAILY PRN for ANXIETY, (Reported) Entered as Reported by: INDIRA MORAN on 05/19/221119 Last Action: Reviewed Discontinued Medications Ibuprofen (Ibuprofen) 800 Mg Tablet, 800 MG PO Q8H PRN for PAIN Discontinued Reason: No Longer Taking Prescribed by: LADONNA Guzman ENYART on 04/08/22118 Last Action: Discontinued Methocarbamol (Methocarbamol) 750 Mg Tablet, 1,500 MG PO Q8H PRN for neck/back spasm Discontinued Reason: No Longer Taking Prescribed by: LADONNA Guzman ENYART on 04/08/22118 Last Action: Discontinued Past Alpiccr-Yhkuoo-Uovfdu Hx Patient Social History Smoking Status: Current Everyday Smoker Alcohol Use?: No Have you traveled recently?: No Surgeries History of Surgeries: Yes Surgeries: Appendectomy, Section, Gallbladder Respiratory History of Respiratory Disorde: No Cardiovascular History of Cardiac Disorders: No Neurological Neurological Disorders: Headaches /Migraines Genitourinary History of Genitourinary Disor: No Gastrointestinal History of Gastrointestinal Di: No Musculoskeletal History of Musculoskeletal Dis: No Endocrine History of Endocrine Disorders: No HEENT History of HEENT Disorders: No Cancer History of Cancer: No Psychosocial History of Psychiatric Problem: No Integumentary History of Skin or Integumenta: No Family Medical History Significant Family History: No Pertinent Family Hx Review of Systems-General Constitutional: No chills, No diaphoresis EENTM: No ear discharge, No hearing loss Respiratory: No cough, No dyspnea on exertion Cardiovascular: No chest pain, No palpitations Gastrointestinal: abdominal pain, diarrhea Genitourinary: No decreased output, No discharge Musculoskeletal: No back pain, No gout Skin: No change in color, No change in hair/nails Psychiatric/Neurological: Denies Anxiety, Denies Depressed All Other Systems Reviewed Negative Unless Noted: Yes Physical Exam-General Problems Physical Exam Vital Signs Vital Signs - First Documented 05/18/22 17:33 Temp 38.7 Pulse 136 Resp 20 B/P (MAP) 152/75 (100) Pulse Ox 94 O2 Delivery Room Air Capillary Refill : Less Than 3 Seconds General Appearance: WD/WN, no apparent distress HEENT: PERRL/EOMI, pharynx normal Neck: supple Respiratory: chest non-tender, normal breath sounds, no respiratory distress, no accessory muscle use Cardiovascular: regular rate, rhythm, no edema, no JVD Gastrointestinal: normal bowel sounds, soft, tenderness (lower abd bilateral) Rectal: deferred Back: normal inspection, no CVA tenderness Extremities: non-tender, normal inspection, no pedal edema, normal capillary refill 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, alert, normal mood/affect, oriented x 3 Skin: normal color, warm/dry Lymphatic: no adenopathy Data Review Labs 05/18/22 17:15: Lactic Acid Level 0.97 Laboratory Tests Test 05/18/22 17:15 05/19/22 04:32 Range/Units White Blood Count 27.5 H 20.9 H 4.3-11.0 10^3/uL Red Blood Count 4.28 3.61 L 3.80-5.11 10^6/uL Hemoglobin 13.7 11.5 11.5-16.0 g/dL Hematocrit 39 35 35-52 % Mean Corpuscular Volume 92 97 80-99 fL Mean Corpuscular Hemoglobin 32 32 25-34 pg Mean Corpuscular Hemoglobin Concent 35 33 32-36 g/dL Red Cell Distribution Width 13.1 13.0 10.0-14.5 % Platelet Count 319 240 130-400 10^3/uL Mean Platelet Volume 9.7 9.6 9.0-12.2 fL Immature Granulocyte % (Auto) 1 1 % Neutrophils (%) (Auto) 81 H 81 H 42-75 % Lymphocytes (%) (Auto) 10 L 10 L 12-44 % Monocytes (%) (Auto) 8 8 0-12 % Eosinophils (%) (Auto) 0 1 0-10 % Basophils (%) (Auto) 0 0 0-10 % Neutrophils # (Auto) 22.3 H 16.8 H 1.8-7.8 10^3/uL Lymphocytes # (Auto) 2.9 2.1 1.0-4.0 10^3/uL Monocytes # (Auto) 2.1 H 1.6 H 0.0-1.0 10^3/uL Eosinophils # (Auto) 0.0 0.2 0.0-0.3 10^3/uL Basophils # (Auto) 0.1 0.1 0.0-0.1 10^3/uL Immature Granulocyte # (Auto) 0.2 H 0.2 H 0.0-0.1 10^3/uL Neutrophils % (Manual) 78 % Lymphocytes % (Manual) 11 % Monocytes % (Manual) 8 % Band Neutrophils 2 % Reactive Lymphocytes 1 % Platelet Estimate NORMAL Blood Morphology Comment NORMAL Prothrombin Time 14.4 12.2-14.7 SEC INR Comment 1.1 0.8-1.4 Activated Partial Thromboplast Time 24 24-35 SEC Urine Color DK YELLOW Urine Clarity CLEAR Urine pH 8.0 5-9 Urine Specific [place] 1.010 L 1.016-1.022 Urine Protein TRACE H NEGATIVE Urine Glucose (UA) NEGATIVE NEGATIVE Urine Ketones NEGATIVE NEGATIVE Urine Nitrite NEGATIVE NEGATIVE Urine Bilirubin NEGATIVE NEGATIVE Urine Urobilinogen 2.0 < = 1.0 MG/DL Urine Leukocyte Esterase NEGATIVE NEGATIVE Urine RBC (Auto) 1+ H NEGATIVE Urine RBC 2-5 H /HPF Urine WBC 0-2 /HPF Urine Squamous Epithelial Cells 0-2 /HPF Urine Crystals NONE /LPF Urine Bacteria TRACE /HPF Urine Casts NONE /LPF Urine Mucus MODERATE H /LPF Urine Culture Indicated CULTURE PENDING Sodium Level 134 L 138 135-145 MMOL/L Potassium Level 3.6 3.4 L 3.6-5.0 MMOL/L Chloride Level 99 106 98-107 MMOL/L Carbon Dioxide Level 23 22 21-32 MMOL/L Anion Gap 12 10 5-14 MMOL/L Blood Urea Nitrogen 8 7 7-18 MG/DL Creatinine 0.62 0.69 0.60-1.30 MG/DL Estimat Glomerular Filtration Rate 108 106 BUN/Creatinine Ratio 13 10 Glucose Level 126 H 127 H 70-105 MG/DL Lactic Acid Level 0.97 0.50-2.00 MMOL/L Calcium Level 9.3 8.4 L 8.5-10.1 MG/DL Corrected Calcium 9.3 9.0 8.5-10.1 MG/DL Total Bilirubin 0.8 1.1 H 0.1-1.0 MG/DL Aspartate Amino Transf (AST/SGOT) 12 54 H 5-34 U/L Alanine Aminotransferase (ALT/SGPT) 17 89 H 0-55 U/L Alkaline Phosphatase 59 60 40-136 U/L Total Protein 7.4 6.1 L 6.4-8.2 GM/DL Albumin 4.0 3.3 3.2-4.5 GM/DL Influenza Type A (RT-PCR) Not Detected Not Detecte Influenza Type B (RT-PCR) Not Detected Not Detecte SARS-CoV-2 RNA (RT-PCR) Not Detected Not Detecte Phosphorus Level 2.4 2.3-4.7 MG/DL Magnesium Level 1.5 L 1.6-2.4 MG/DL Microbiology 05/19/22 MRSA Screen - Final, Complete MRSA not isolated Radiology [facility], [place] NAME: FRITZ BUCHANAN [facility] REC#: [id number] PT STATUS: REG ER : 1970 PHYSICIAN: MICHAEL JONES MD ADMIT DATE: 05/18/22/ER FS Signed Date of Exam:05/18/22 CT ABDOMEN/PELVIS W PROCEDURE: CT abdomen and pelvis with contrast. TECHNIQUE: Multiple contiguous axial images were obtained through the abdomen and pelvis after administration of intravenous contrast. Auto Exposure Controls were utilized during the CT exam to meet ALARA standards for radiation dose reduction. All CT scans use one or more of the following dose optimizing techniques: automated exposure control, MA and/or KvP adjustment based on patient size and exam type or iterative reconstruction. DATE: May 18, 2022. COMPARISON: None. INDICATION: 52-year-old female, lower abdominal pain, fever. FINDINGS: The visualized portions of the lung bases are clear. The heart is not enlarged. There is no pericardial effusion. The liver is unremarkable in size and contour. There is no identified liver lesion. The main, right and left portal veins are patent. The gallbladder surgically absent. There is no biliary ductal dilation. The main pancreatic duct is not abnormally dilated. Unremarkable appearance of the pancreatic parenchyma. The spleen is normal in size. There is a right adrenal nodule on axial image 32 which measures 3.5 cm in size. Internal attenuation on this postcontrast exam is 52 Hounsfield units. This is indeterminate. There is also an indeterminate 3 cm left renal lesion with internal attenuation on postcontrast imaging of 44 Hounsfield units. There is a punctate nonobstructing 1 mm left renal stone on axial image 80. There is a 3 mm low-attenuation left renal lesion too small to characterize. The urinary collecting systems are not distended. There is a calcification along the expected course of the left ureter. This potentially could relate to a ureteral stone or phlebolith. This measures approximately 1 to 2 mm in size. The distal ureter on the left is difficult to visualize at this level. The urinary bladder is grossly unremarkable in appearance. There is extensive abnormal wall thickening of the mid to distal sigmoid colon with very prominent adjacent inflammatory stranding. There is diverticular disease at this location. There is adjacent free fluid including extending into the presacral space. There is no identified well-demarcated drainable fluid collection or mature abscess at this time. There is no evidence of acute appendicitis. There is no free intraperitoneal air. There are atherosclerotic calcifications. There are small subcentimeter pericolonic lymph nodes near the wall thickening of the sigmoid colon with one example seen on axial image 140. There is an additional example on axial image 129 and also on axial image 118. These lymph nodes measure up to approximately 8 mm short axis. There are sclerotic lesions of the left pubic bones likely reflecting benign bone islands. There is no additional identified bone lesion in the included [id number]. IMPRESSION: CT abdomen and pelvis: 1. Extensive abnormal wall thickening of the mid to distal sigmoid colon which is in an area of diverticular disease. There is also extensive inflammatory stranding and adjacent free fluid without drainable fluid collection or abscess. This potentially may reflect acute diverticulitis. Colonic malignancy at this site cannot be excluded. There are pericolonic lymph nodes present. 2. Indeterminate bilateral adrenal nodules. Dedicated renal mass protocol CT without and with intravenous contrast is recommended for further evaluation on a nonemergent basis. Dictated by: Dictated on workstation # [id number] Dict: 05/18/22 1838 Trans: 05/18/22 1950 [id number] Interpreted by: MELCHOR IZQUIERDO MD Electronically signed by: MELCHOR IZQUIERDO MD 05/18/22 1950 Assessment/Plan Assessment/Plan Assessment/Plan lower abdominal pain fever nausea clear liquids Acute sigmoid diverticulitis seen on CT Improved with IV zosyn-continue pain meds, anti nausea prn Advance diet as tolerated F/u for colonoscopy in 6 weeks MOON MAY May 20, 2022 05:20
[2022-05-20 05:42] LABS: BASOPHILS # (AUTO) 0.1 10^3/uL (0.0-0.1); BASOPHILS % (AUTO) 0 % (0-10); EOSINOPHILS % (AUTO) 0 % (0-10); HEMATOCRIT 32 % (35-52); HEMOGLOBIN 10.5 g/dL (11.5-16.0); LYMPHOCYTES # (AUTO) 1.6 10^3/uL (1.0-4.0); LYMPHOCYTES % (AUTO) 8 % (12-44); MEAN CORPUSCULAR HEMOGLOBIN 32 pg (25-34); MEAN CORPUSCULAR HGB CONC 33 g/dL (32-36); MEAN CORPUSCULAR VOLUME 98 fL (80-99); MONOCYTES # (AUTO) 0.7 10^3/uL (0.0-1.0); MONOCYTES % (AUTO) 3 % (0-12); NEUTROPHILS # (AUTO) 18.9 10^3/uL (1.8-7.8); NEUTROPHILS % (AUTO) 89 % (42-75); PLATELET COUNT 215 10^3/uL (130-400); WHITE BLOOD COUNT 21.4 10^3/uL (4.3-11.0)
[2022-05-20 06:18] LABS: ALBUMIN 2.9 GM/DL (3.2-4.5); BILIRUBIN,TOTAL 0.8 MG/DL (0.1-1.0); CREATININE SERUM 0.69 MG/DL (0.60-1.30); MAGNESIUM 1.7 MG/DL (1.6-2.4); POTASSIUM 3.6 MMOL/L (3.6-5.0); TOTAL PROTEIN 5.6 GM/DL (6.4-8.2)
[2022-05-20] MEDS: NS IV 1000 ML 1,000 ML IV SCH ×3 (06:48→18:28)
[2022-05-20] MEDS: PIPERACILLIN SODIUM/TAZOBACTAM 4.5 GM in NS (IVPB) 100 ML IV SCH ×3 (06:48→23:26)
[2022-05-20] MEDS: RT-ALBUTEROL/IPRATROPIUM 3 ML (DUONEB) VIAL INH SCH ×2 (08:16→19:07)
[2022-05-20] MEDS: PANTOPRAZOLE 40 MG (PROTONIX) TAB PO SCH (09:03)
[2022-05-20] MEDS: DOCUSATE SODIUM 100 MG (COLACE) CAP PO SCH ×2 (09:03→19:14)
[2022-05-20] MEDS: NICOTINE PATCH REMOVAL TP SCH (09:04)
[2022-05-20] MEDS: NICOTINE 21 MG (NICODERM) PATCH TD SCH (09:04)
--- NOTE | 2022-05-20 11:16 | Progress Note - Hospitalist ---
Subjective HPI/CC On Admission Date Seen by Provider: May 20, 2022 Time Seen by Provider: 08:00 CC: Abdominal pain with new diverticulitis HPI: This is a 52 yr old female with essentially no medical history. She presented to the ER with abdominal pain and was found to have severe diverticulitis on CT scan. Pt was placed in the ICU due to hypotension, fever, and sepsis. She was placed on Zosyn. Dr. Bloom consulted. Subjective/Events-last exam Patient reports abdominal pain about the same. She has been thirsty tolerating liquids did report some nausea and vomiting earlier without evidence for hem atemesis. She continues to report diarrhea without evidence for blood. She reports no recent antibiotic usage Until this hospitalization. T-max 38 9 she denies rigors. She is currently afebrile. Focused Exam Lactate Level 05/18/22 17:15: Lactic Acid Level 0.97 Objective Exam Vital Signs Vital Signs Date Time Temp Pulse Resp B/P (MAP) Pulse Ox O2 Delivery O2 Flow Rate FiO2 05/20/22 08:17 98 Room Air 05/20/22 07:38 36.8 104 18 134/81 (98) 05/19/22 15:26 0.00 Capillary Refill : Less Than 3 Seconds General Appearance: Chronically ill, Mild Distress, Obese Respiratory: Chest Non Tender, Lungs Clear, Normal Breath Sounds, No Accessory Muscle Use, No Respiratory Distress Cardiovascular: Regular Rate, Rhythm, No Edema, No Gallop, No JVD, No Murmur, Normal Peripheral Pulses Gastrointestinal: Other (Bowel sounds are positive there is some mild distention abdomen is soft there is guarding throughout no worse in the left lower quadrant area where her inflammatory changes on CT scan were noted. No masslike effect but patient would not allow anything but light palpation due to her pain.) Results/Procedures Lab Laboratory Tests 05/20/22 04:52 Patient resulted labs reviewed. Assessment/Plan Assessment and Plan Assess & Plan/Chief Complaint Assessment and Plan Acute diverticulitis - Continue fluid resuscitation and broad spectrum IV antibiotics.Discussed the serious nature of her illness and the need to stay for IV antibiotics until her fever defervesced is and we see her white count retu rning to normal she is doing little better on her tobacco craving standpoint on nicotine patch.. Bilateral indeterminate adrenal masses - follow-up in non-emergent setting with CT with and without contrast Tobacco use - continue nicotine patch as needed SERA VILLEGAS MD May 20, 2022 11:16
--- NOTE | 2022-05-20 12:03 | Progress Note - Surgery ---
[facility] 05/20/22 1203: Subjective Date Seen by a Provider: May 20, 2022 Time Seen by a Provider: 06:50 Subjective/Events-last exam Cindy is a 52 yo F who presented to the ER with lower abdominal pain and fever on 05/18/22. Pain started around 3 am 05/18 and woke her from sleep. She described the pain as sharp and constant, somewhat similar to what she experienced when she had a ruptured ovarian cyst. Past medical history of anxiety. Past surgical history of appendectomy, , and gallbladder. CT of abdomen showed possible acute diverticulitis, but could not exclude colonic malignancy. She is taking piperacillin/tazobactam and tramadol/toradol for pain as oxy made her sick. Patient refused enoxaparin. Today pt is reporting pain in the lower abdomen bilaterally at a 5-6/10 severity that is worse with movement and does not improve with pain medication. She had 2 BM last night that were described as diarrhea without pain or blood, urinating without issue and passing gas. Pt reports PEREZ with history of chronic migraines, these improve with pain meds. She has intermittent nausea that subsides on own. Pt states she is hungry. Nurse reports tachycardia in the 110s overnight and temp up to 39 C now down to 37 C. Review of Systems General: No Chills; Appetite HEENT: Head Aches; No Visual Changes Pulmonary: No Dyspnea, No Cough Cardiovascular: No: Chest Pain, Palpitations Gastrointestinal: Abdominal Pain, Diarrhea Genitourinary: No Dysuria, No Frequency Musculoskeletal: No: neck pain, shoulder pain Neurological: No: Weakness, Numbness Focused Exam Lactate Level 05/18/22 17:15: Lactic Acid Level 0.97 Objective Exam Vital Signs Date Time Temp Pulse Resp B/P (MAP) Pulse Ox O2 Delivery O2 Flow Rate FiO2 05/20/22 11:15 37.5 107 18 112/70 (84) 93 Room Air 05/20/22 08:17 98 Room Air 05/20/22 08:00 Room Air 05/20/22 07:38 36.8 104 18 134/81 (98) 94 Room Air 05/20/22 03:26 37.0 104 18 110/68 (82) 92 Room Air 05/20/22 00:50 37.3 110 16 111/68 (82) 92 Room Air 05/20/22 00:33 37.8 05/19/22 23:37 38.9 05/19/22 20:04 97 Room Air 05/19/22 19:43 Room Air 05/19/22 19:07 38.0 97 17 116/72 (87) 92 Room Air 05/19/22 19:00 38.0 05/19/22 18:12 39.0 05/19/22 15:26 36.2 85 20 113/57 (75) 94 Room Air 0.00 05/19/22 12:18 36.6 89 18 114/74 (87) 92 Room Air I & O 05/20/22 07:00 Intake Total 5940 ml Balance 5940 ml Capillary Refill : Less Than 3 Seconds General Appearance: Chronically ill, Mild Distress, Obese HEENT: PERRL/EOMI, Pharynx Normal Neck: Full Range of Motion, Normal Inspection, Non Tender, Supple Respiratory: Chest Non Tender, Lungs Clear, Normal Breath Sounds, No Accessory Muscle Use, No Respiratory Distress Cardiovascular: Regular Rate, Rhythm, No Edema, No JVD Gastrointestinal: normal bowel sounds, soft, tenderness (lower abdomen bilateral) Extremity: Normal Capillary Refill, Normal Inspection, Non Tender, No Calf Tenderness Neurologic/Psychiatric: Alert, Oriented x3, No Motor/Sensory Deficits, Normal Mood/Affect Skin: Normal Color, Warm/Dry Lymphatic: No Adenopathy Results Lab Laboratory Tests 05/20/22 04:52: White Blood Count 21.4H, Red Blood Count 3.25L, Hemoglobin 10.5L, Hematocrit 32L , Mean Corpuscular Volume 98, Mean Corpuscular Hemoglobin 32, Mean Corpuscular Hemoglobin Concent 33, Red Cell Distribution Width 13.0, Platelet Count 215, Mean Platelet Volume 10.0, Immature Granulocyte % (Auto) 1, Neutrophils (%) (Auto) 89H, Lymphocytes (%) (Auto) 8L, Monocytes (%) (Auto) 3, Eosinophils (%) (Auto) 0, Basophils (%) (Auto) 0, Neutrophils # (Auto) 18.9H, Lymphocytes # (Auto) 1.6, Monocytes # (Auto) 0.7, Eosinophils # (Auto) 0.0, Basophils # (Auto) 0.1, Immature Granulocyte # (Auto) 0.1, Sodium Level 138, Potassium Level 3.6, Chloride Level 106, Carbon Dioxide Level 21, Anion Gap 11, Blood Urea Nitrogen 6L, Creatinine 0.69, Estimat Glomerular Filtration Rate 106, BUN/Creatinine Ratio 9, Glucose Level 125H, Calcium Level 8.0L, Corrected Calcium 8.9, Magnesium Level 1.7, Total Bilirubin 0.8, Aspartate Amino Transf (AST/SGOT) 16, Alanine Aminotransferase (ALT/SGPT) 52, Alkaline Phosphatase 58, Total Protein 5.6L, Albumin 2.9L Microbiology 05/19/22 MRSA Screen - Final, Complete MRSA not isolated 05/18/22 Blood Culture - Preliminary, Resulted No growth 05/18/22 Urine Culture - Final, Complete 3 or more isolates Assessment/Plan Assessment/Plan Assessment/Plan lower abdominal pain fever nausea Acute sigmoid diverticulitis seen on CT Improved with IV zosyn-continue and add Flagyl 300 mg TID IV pain meds, anti nausea prn NPO d/t increased pain F/u for colonoscopy in 6 weeks SEVERO CAO DO 05/20/22 1549: Subjective Subjective/Events-last exam Patient having pain in lower abdomen. Same or slightly worse than yesterday she states. Patient has had a little diarrhea. Had fever overnight. Currently normal range temperature. WBC up from yesterday. Having some nausea and emesis this am. Denies fever sweats chills shortness of breath or chest pain at this time. Reveiwed ct scan. Family at bedside. Objective Exam General Appearance: Anxious, Mild Distress, Obese HEENT: PERRL/EOMI, Normal ENT Inspection, Pharynx Normal Neck: Normal Inspection, Non Tender Respiratory: Chest Non Tender, No Accessory Muscle Use, No Respiratory Distress Cardiovascular: No JVD, Tachycardia Gastrointestinal: soft, tenderness (lower abdomen bilateral) Extremity: Normal Inspection, Non Tender Neurologic/Psychiatric: Alert, Oriented x3, Other (anxious) Skin: Normal Color, Warm/Dry Lymphatic: No Adenopathy Assessment/Plan Assessment/Plan Assessment/Plan acdute diverticulitis lower abdominal pain fever nausea Acute sigmoid diverticulitis seen on CT IV zosyn-continue and add Flagyl 500 mg TID IV pain meds, anti nausea prn NPO d/t increased pain and wbc need bowel rest If worsens may need repeat ct to reevaluate IV fluids repeat labs in am Supervisory-Addendum Brief Verification & Attestation Participated in pt care: history, MDM, physical Personally performed: exam, history, MDM, supervision of care Care discussed with: Medical Student Procedures: n/a Results interpretation: Verified all documentation Verification and Attestation of Medical Student E/M Service A medical student performed and documented this service in my presence. I reviewed and verified all information documented by the medical student and made modifications to such information, when appropriate. I personally performed the physical exam and medical decision making. Severo Cao, May 20, 2022,15:49 MOON MAY May 20, 2022 12:03 SEVERO CAO DO May 20, 2022 15:49
[2022-05-20] MEDS: metroNIDAZOLE 500MG/100ML IVPB 100 ML IV SCH ×2 (13:33→21:37)
[2022-05-20] MEDS: LORazepam 1 MG (ATIVAN) TAB PO PRN (13:33)
[2022-05-20] MEDS: ACETAMINOPHEN 325 MG TABLET PO PRN ×2 (15:29→20:24)
[2022-05-20] MEDS: ENOXAPARIN 40 MG/0.4 ML (LOVENOX) SYR SC SCH (21:37)
[2022-05-20] MEDS ORDERED: FUROSEMIDE 40 MG/4 ML INJ (LASIX) IVP ONE (22:00)
[2022-05-20] MEDS ORDERED: FUROSEMIDE 40 MG/4 ML INJ (LASIX) ONE (22:04)
[2022-05-21] VITALS (9 sets, daily range): BP systolic 95–137; BP diastolic 60–85
[2022-05-21] MEDS: KETOROLAC 30 MG/ML VIAL IV PRN ×2 (03:14→22:31)
[2022-05-21] MEDS: ONDANSETRON 4 MG/2 ML (SDV) Z0FRAN IV PRN (03:17)
[2022-05-21] MEDS: metroNIDAZOLE 500MG/100ML IVPB 100 ML IV SCH ×3 (04:41→21:11)
[2022-05-21] MEDS: HYDROmorphone 2 MG/ML VIAL (DILAUDID) IV PRN ×2 (05:42→08:58)
[2022-05-21] MEDS: PIPERACILLIN SODIUM/TAZOBACTAM 4.5 GM in NS (IVPB) 100 ML IV SCH ×3 (05:53→22:25)
[2022-05-21 06:24] LABS: BASOPHILS % (AUTO) 0 % (0-10); EOSINOPHILS # (AUTO) 0.1 10^3/uL (0.0-0.3); EOSINOPHILS % (AUTO) 0 % (0-10); HEMATOCRIT 35 % (35-52); HEMOGLOBIN 11.5 g/dL (11.5-16.0); LYMPHOCYTES # (AUTO) 1.1 10^3/uL (1.0-4.0); LYMPHOCYTES % (AUTO) 6 % (12-44); MEAN CORPUSCULAR HEMOGLOBIN 32 pg (25-34); MEAN CORPUSCULAR HGB CONC 33 g/dL (32-36); MEAN CORPUSCULAR VOLUME 97 fL (80-99); MEAN PLATELET VOLUME 9.9 fL (9.0-12.2); MONOCYTES # (AUTO) 0.7 10^3/uL (0.0-1.0); MONOCYTES % (AUTO) 4 % (0-12); NEUTROPHILS # (AUTO) 15.6 10^3/uL (1.8-7.8); NEUTROPHILS % (AUTO) 89 % (42-75); PLATELET COUNT 258 10^3/uL (130-400); WHITE BLOOD COUNT 17.6 10^3/uL (4.3-11.0)
[2022-05-21 06:49] LABS: ALBUMIN 3.2 GM/DL (3.2-4.5); BILIRUBIN,TOTAL 0.8 MG/DL (0.1-1.0); CALCIUM 9.2 MG/DL (8.5-10.1); CREATININE SERUM 0.73 MG/DL (0.60-1.30); MAGNESIUM 1.7 MG/DL (1.6-2.4); POTASSIUM 3.4 MMOL/L (3.6-5.0); TOTAL PROTEIN 6.6 GM/DL (6.4-8.2)
--- NOTE | 2022-05-21 07:01 | Progress Note - Surgery ---
[facility] 05/21/22 0701: Subjective Date Seen by a Provider: May 21, 2022 Time Seen by a Provider: 06:55 Subjective/Events-last exam Overnight pt was febrile at 38 C and tachycardic. She was put on lasix, O2 prn and is taking Tylenol prn for fever. Today she had an episode of pain 10/10 and was given dilaudid which decreased pain to 6-7/10. Pt reports feeling slightly better as her pain is localized to the lower abdomen at this time. She had 1 loose BM last night without blood or pain. Denies CP, SOB, PEREZ, diaphoresis. Review of Systems General: No Night Sweats; Appetite HEENT: No Head Aches, No Visual Changes Pulmonary: No Dyspnea, No Cough Cardiovascular: No: Chest Pain, Palpitations Gastrointestinal: Abdominal Pain; No: Constipation Genitourinary: No Dysuria, No Frequency Musculoskeletal: No: neck pain, shoulder pain Neurological: No: Weakness, Numbness Focused Exam Lactate Level 05/18/22 17:15: Lactic Acid Level 0.97 Objective Exam Vital Signs Date Time Temp Pulse Resp B/P (MAP) Pulse Ox O2 Delivery O2 Flow Rate FiO2 05/21/22 03:00 37.1 108 18 125/64 (84) 92 Nasal Cannula 2.00 05/20/22 23:22 36.7 109 18 118/71 (87) 94 Nasal Cannula 2.00 05/20/22 22:27 Nasal Cannula 3.00 05/20/22 21:42 93 Nasal Cannula 3.00 05/20/22 21:30 37.1 05/20/22 21:30 37.1 123 22 135/62 (86) 85 Room Air 05/20/22 20:24 37.9 05/20/22 20:09 37.9 121 18 127/70 (89) 90 Room Air 05/20/22 19:50 Room Air 05/20/22 19:08 90 Room Air 05/20/22 16:05 37.5 05/20/22 16:01 38.0 110 20 124/63 (83) 94 Room Air 05/20/22 14:40 37.9 05/20/22 11:15 37.5 107 18 112/70 (84) 93 Room Air 05/20/22 08:17 98 Room Air 05/20/22 08:00 Room Air 05/20/22 07:38 36.8 104 18 134/81 (98) 94 Room Air I & O 05/21/22 07:00 Intake Total 2100 ml Balance 2100 ml Capillary Refill : Less Than 3 Seconds General Appearance: Anxious, Mild Distress, Obese HEENT: PERRL/EOMI, Normal ENT Inspection, Pharynx Normal Neck: Normal Inspection, Non Tender Respiratory: Chest Non Tender, No Accessory Muscle Use, No Respiratory Distress Cardiovascular: No JVD, Tachycardia Gastrointestinal: soft, tenderness (lower abdomen bilateral) Extremity: Normal Inspection, Non Tender Neurologic/Psychiatric: Alert, Oriented x3, Other (anxious) Skin: Normal Color, Warm/Dry Lymphatic: No Adenopathy Results Lab Laboratory Tests 05/21/22 05:55: White Blood Count 17.6H, Red Blood Count 3.63L, Hemoglobin 11.5, Hematocrit 35, Mean Corpuscular Volume 97, Mean Corpuscular Hemoglobin 32, Mean Corpuscular Hemoglobin Concent 33, Red Cell Distribution Width 13.0, Platelet Count 258, Mean Platelet Volume 9.9, Immature Granulocyte % (Auto) 1, Neutrophils (%) (Auto) 89H, Lymphocytes (%) (Auto) 6L, Monocytes (%) (Auto) 4, Eosinophils (%) (Auto) 0, Basophils (%) (Auto) 0, Neutrophils # (Auto) 15.6H, Lymphocytes # (Auto) 1.1, Monocytes # (Auto) 0.7, Eosinophils # (Auto) 0.1, Basophils # (Auto) 0.0, Immature Granulocyte # (Auto) 0.1, Sodium Level 139, Potassium Level 3.4L, Chloride Level 103, Carbon Dioxide Level 22, Anion Gap 14, Blood Urea Nitrogen 11, Creatinine 0.73, Estimat Glomerular Filtration Rate 100, BUN/Creatinine Ratio 15, Glucose Level 96, Calcium Level 9.2, Corrected Calcium 9.8, Magnesium Level 1.7, Total Bilirubin 0.8, Aspartate Amino Transf (AST/SGOT) 13, Alanine Aminotransferase (ALT/SGPT) 36, Alkaline Phosphatase 69, Total Protein 6.6, Albumin 3.2 Microbiology 05/19/22 MRSA Screen - Final, Complete MRSA not isolated 05/18/22 Blood Culture - Preliminary, Resulted No growth 05/18/22 Urine Culture - Final, Complete 3 or more isolates Assessment/Plan Assessment/Plan Assessment/Plan acdute diverticulitis lower abdominal pain fever nausea Acute sigmoid diverticulitis seen on CT IV zosyn-continue and add Flagyl 500 mg TID IV pain meds, anti nausea prn NPO d/t increased pain and wbc need bowel rest If worsens may need repeat ct to reevaluate IV fluids repeat labs with improved wbc though still elevated SEVERO CAO DO 05/21/22 1253: Subjective Subjective/Events-last exam Patient febrile. She is upset that she is NPO. States to me her pain is 1/10 if not touching but moderate tenderness if touched. Having some diarrhea. Denies any n/v. Nursing reports patient drinking lots of water when can get it and expressed that she was not in agreement with treatment plan using colorful language WBC decreased slightly. Objective Exam General Appearance: Anxious, Mild Distress, Obese HEENT: PERRL/EOMI, Normal ENT Inspection, Pharynx Normal Neck: Normal Inspection, Non Tender Respiratory: Chest Non Tender, No Accessory Muscle Use, No Respiratory Distress Cardiovascular: Regular Rate, Rhythm, No JVD Gastrointestinal: soft, tenderness (lower abdomen bilateral moderate) Extremity: Normal Inspection, Non Tender Neurologic/Psychiatric: Alert, Oriented x3 Skin: Normal Color, Warm/Dry Lymphatic: No Adenopathy Assessment/Plan Assessment/Plan Assessment/Plan acute diverticulitis lower abdominal pain fever nausea Acute sigmoid diverticulitis seen on CT IV zosyn/Flagyl pain meds, anti nausea prn NPO If worsens may need repeat ct to reevaluate IV fluids stopped by medicine and patient wanting them stopped repeat labs with improved wbc though still elevated follow labs Discussed with patient that i'm concerned that she is still moderately tender on exam and fever I think she still has potential a developing abscess causing her symptoms. Patient not completely in agreement with treatment plan, but not expressing what she would like me to do to help her further. Supervisory-Addendum Brief Verification & Attestation Participated in pt care: history, MDM, physical Personally performed: exam, history, MDM, supervision of care Care discussed with: Medical Student Procedures: n/a Results interpretation: Verified all documentation Verification and Attestation of Medical Student E/M Service A medical student performed and documented this service in my presence. I reviewed and verified all information documented by the medical student and made modifications to such information, when appropriate. I personally performed the physical exam and medical decision making. Severo Cao, May 21, 2022,13:04 MOON MAY May 21, 2022 07:01 SEVERO CAO DO May 21, 2022 12:53
[2022-05-21] MEDS: DOCUSATE SODIUM 100 MG (COLACE) CAP PO SCH ×2 (07:48→20:25)
[2022-05-21] MEDS: RT-ALBUTEROL/IPRATROPIUM 3 ML (DUONEB) VIAL INH SCH (07:53)
[2022-05-21] MEDS ORDERED: NS IV 1000 ML 1,000 ML ONE (07:59)
[2022-05-21] MEDS ORDERED: NS IV 1000 ML 1,000 ML IV SCH (08:00)
[2022-05-21] MEDS: NICOTINE 21 MG (NICODERM) PATCH TD SCH (08:57)
[2022-05-21] MEDS: NICOTINE PATCH REMOVAL TP SCH (08:58)
[2022-05-21] MEDS: PANTOPRAZOLE 40 MG (PROTONIX) VIAL IV SCH (08:58)
[2022-05-21] MEDS: ACETAMINOPHEN 325 MG TABLET PO PRN ×2 (11:25→17:27)
[2022-05-21] MEDS: LORazepam 1 MG (ATIVAN) TAB PO PRN (13:52)
[2022-05-21] MEDS ORDERED: meTOproloL SUCCINATE 50 MG (TOPROL XL) TAB PO SCH (18:30)
[2022-05-21] MEDS ORDERED: meTOproloL SUCCINATE 50 MG (TOPROL XL) TAB PO ONE ×2 (18:30→21:15)
[2022-05-21] MEDS: ENOXAPARIN 40 MG/0.4 ML (LOVENOX) SYR SC SCH (20:25)
[2022-05-22 03:25] VITALS: BP 123/62
[2022-05-22] MEDS: metroNIDAZOLE 500MG/100ML IVPB 100 ML IV SCH ×3 (05:24→22:01)
[2022-05-22 05:30] LABS: BASOPHILS # (AUTO) 0.1 10^3/uL (0.0-0.1); BASOPHILS % (AUTO) 0 % (0-10); EOSINOPHILS # (AUTO) 0.2 10^3/uL (0.0-0.3); EOSINOPHILS % (AUTO) 1 % (0-10); HEMATOCRIT 32 % (35-52); HEMOGLOBIN 10.5 g/dL (11.5-16.0); LYMPHOCYTES # (AUTO) 0.8 10^3/uL (1.0-4.0); LYMPHOCYTES % (AUTO) 5 % (12-44); MEAN CORPUSCULAR HEMOGLOBIN 32 pg (25-34); MEAN CORPUSCULAR HGB CONC 33 g/dL (32-36); MEAN CORPUSCULAR VOLUME 97 fL (80-99); MEAN PLATELET VOLUME 9.8 fL (9.0-12.2); MONOCYTES # (AUTO) 0.6 10^3/uL (0.0-1.0); MONOCYTES % (AUTO) 4 % (0-12); NEUTROPHILS # (AUTO) 15.3 10^3/uL (1.8-7.8); NEUTROPHILS % (AUTO) 89 % (42-75); PLATELET COUNT 243 10^3/uL (130-400); WHITE BLOOD COUNT 17.1 10^3/uL (4.3-11.0)
[2022-05-22 05:52] LABS: ALBUMIN 2.9 GM/DL (3.2-4.5); BILIRUBIN,TOTAL 0.5 MG/DL (0.1-1.0); CALCIUM 8.9 MG/DL (8.5-10.1); CREATININE SERUM 0.66 MG/DL (0.60-1.30); MAGNESIUM 1.7 MG/DL (1.6-2.4); POTASSIUM 3.2 MMOL/L (3.6-5.0); TOTAL PROTEIN 6.1 GM/DL (6.4-8.2)
[2022-05-22] MEDS: PIPERACILLIN SODIUM/TAZOBACTAM 4.5 GM in NS (IVPB) 100 ML IV SCH ×3 (06:26→23:25)
[2022-05-22 07:34] VITALS: BP 114/56
[2022-05-22] MEDS: DOCUSATE SODIUM 100 MG (COLACE) CAP PO SCH ×2 (07:37→20:24)
[2022-05-22] MEDS: NICOTINE PATCH REMOVAL TP SCH (07:53)
[2022-05-22] MEDS ORDERED: POTASSIUM CL 10MEQ/50ML IVPB 50 ML IV SCH (09:00)
[2022-05-22] MEDS: NICOTINE 21 MG (NICODERM) PATCH TD SCH (10:07)
[2022-05-22] MEDS: PANTOPRAZOLE 40 MG (PROTONIX) VIAL IV SCH (10:08)
[2022-05-22] MEDS: KETOROLAC 30 MG/ML VIAL IV PRN ×2 (11:27→22:20)
[2022-05-22 11:46] VITALS: BP 111/52
[2022-05-22] MEDS ORDERED: POTASSIUM BICARB 20 MEQ (EFFER-K) TABLET PO NR (12:30)
--- NOTE | 2022-05-22 15:37 | Progress Note ---
Subjective Subjective/Events-last exam Pt states she is still having a fair bit of pain. She is frustrated about how long it is taking to get better and that she has a lot she needs to do at home and work. She has a sore tongue and dry mouth from when she was strict NPO. Objective Exam Last Set of Vital Signs Vital Signs Date Time Temp Pulse Resp B/P (MAP) Pulse Ox O2 Delivery O2 Flow Rate FiO2 05/22/22 11:46 36.8 85 18 111/52 (71) 99 Room Air 05/22/22 07:34 2.00 Capillary Refill : Less Than 3 Seconds I&O Intake and Output 05/22/22 00:00 Intake Total 900 ml Balance 900 ml Intake Oral 0 ml IV Total 900 ml # Voids 12 # Bowel Movements 5 General: Alert, No Acute Distress Lungs: Clear to Auscultation, Normal Air Movement Heart: Regular Rate, No Murmurs Abdomen: Normal Bowel Sounds, Other (ttp, greater on right, mildly distended) Extremities: No Edema Neuro: Normal Speech Psych/Mental Status: Mood NL Results/Procedures Lab Laboratory Tests 05/22/22 05:23: White Blood Count 17.1H, Red Blood Count 3.30L, Hemoglobin 10.5L, Hematocrit 32L , Mean Corpuscular Volume 97, Mean Corpuscular Hemoglobin 32, Mean Corpuscular Hemoglobin Concent 33, Red Cell Distribution Width 13.1, Platelet Count 243, Mean Platelet Volume 9.8, Immature Granulocyte % (Auto) 1, Neutrophils (%) (Auto) 89H, Lymphocytes (%) (Auto) 5L, Monocytes (%) (Auto) 4, Eosinophils (%) (Auto) 1, Basophils (%) (Auto) 0, Neutrophils # (Auto) 15.3H, Lymphocytes # (Auto) 0.8L, Monocytes # (Auto) 0.6, Eosinophils # (Auto) 0.2, Basophils # (Auto) 0.1, Immature Granulocyte # (Auto) 0.1, Sodium Level 140, Potassium Level 3.2L, Chloride Level 106, Carbon Dioxide Level 21, Anion Gap 13, Blood Urea Nitrogen 18, Creatinine 0.66, Estimat Glomerular Filtration Rate 107, BUN/Creatinine Ratio 27, Glucose Level 87, Calcium Level 8.9, Corrected Calcium 9.8, Magnesium Level 1.7, Total Bilirubin 0.5, Aspartate Amino Transf (AST/SGOT) 12, Alanine Aminotransferase (ALT/SGPT) 23, Alkaline Phosphatase 54, Total Protein 6.1L, Albumin 2.9L Microbiology 05/19/22 MRSA Screen - Final, Complete MRSA not isolated 05/18/22 Blood Culture - Preliminary, Resulted No growth 05/18/22 Urine Culture - Final, Complete 3 or more isolates Radiology [facility] [place] [place] NAME: FRITZ BUCHANAN [facility] REC#: [id number] PT STATUS: REG ER : 1970 PHYSICIAN: MICHAEL JONES MD ADMIT DATE: 05/18/22/ER FS Signed Date of Exam:05/18/22 CT ABDOMEN/PELVIS W PROCEDURE: CT abdomen and pelvis with contrast. TECHNIQUE: Multiple contiguous axial images were obtained through the abdomen and pelvis after administration of intravenous contrast. Auto Exposure Controls were utilized during the CT exam to meet ALARA standards for radiation dose reduction. All CT scans use one or more of the following dose optimizing techniques: automated exposure control, MA and/or KvP adjustment based on patient size and exam type or iterative reconstruction. DATE: May 18, 2022. COMPARISON: None. INDICATION: 52-year-old female, lower abdominal pain, fever. FINDINGS: The visualized portions of the lung bases are clear. The heart is not enlarged. There is no pericardial effusion. The liver is unremarkable in size and contour. There is no identified liver lesion. The main, right and left portal veins are patent. The gallbladder surgically absent. There is no biliary ductal dilation. The main pancreatic duct is not abnormally dilated. Unremarkable appearance of the pancreatic parenchyma. The spleen is normal in size. There is a right adrenal nodule on axial image 32 which measures 3.5 cm in size. Internal attenuation on this postcontrast exam is 52 Hounsfield units. This is indeterminate. There is also an indeterminate 3 cm left renal lesion with internal attenuation on postcontrast imaging of 44 Hounsfield units. There is a punctate nonobstructing 1 mm left renal stone on axial image 80. There is a 3 mm low-attenuation left renal lesion too small to characterize. The urinary collecting systems are not distended. There is a calcification along the expected course of the left ureter. This potentially could relate to a ureteral stone or phlebolith. This measures approximately 1 to 2 mm in size. The distal ureter on the left is difficult to visualize at this level. The urinary bladder is grossly unremarkable in appearance. There is extensive abnormal wall thickening of the mid to distal sigmoid colon with very prominent adjacent inflammatory stranding. There is diverticular disease at this location. There is adjacent free fluid including extending into the presacral space. There is no identified well-demarcated drainable fluid collection or mature abscess at this time. There is no evidence of acute appendicitis. There is no free intraperitoneal air. There are atherosclerotic calcifications. There are small subcentimeter pericolonic lymph nodes near the wall thickening of the sigmoid colon with one example seen on axial image 140. There is an additional example on axial image 129 and also on axial image 118. These lymph nodes measure up to approximately 8 mm short axis. There are sclerotic lesions of the left pubic bones likely reflecting benign bone islands. There is no additional identified bone lesion in the included [id number]. IMPRESSION: CT abdomen and pelvis: 1. Extensive abnormal wall thickening of the mid to distal sigmoid colon which is in an area of diverticular disease. There is also extensive inflammatory stranding and adjacent free fluid without drainable fluid collection or abscess. This potentially may reflect acute diverticulitis. Colonic malignancy at this site cannot be excluded. There are pericolonic lymph nodes present. 2. Indeterminate bilateral adrenal nodules. Dedicated renal mass protocol CT without and with intravenous contrast is recommended for further evaluation on a nonemergent basis. Dictated by: Dictated on workstation # [id number] Dict: 05/18/22 1838 Trans: 05/18/221949 [facility] [id number] Interpreted by: MELCHOR IZQUIERDO MD Electronically signed by: MELCHOR IZQUIERDO MD 05/18/221949 Assessment/Plan Assessment/Plan (1) Diverticulitis of intestine Status: Acute Assessment & Plan: Slow improvement, leukocytosis decreased but not resolved. Continued on Zosyn since admission. On CLD today. Appreciate Surgery recommendations. Qualifiers: Qualified Codes: K57.32 - Diverticulitis of large intestine without perforation or abscess without bleeding (2) Severe sepsis Status: Acute Assessment & Plan: Secondary to diverticulitis. Improving. Continued on Zosyn. HARINI MOHAMUD MD May 22, 2022 15:37
[2022-05-22 15:46] VITALS: BP 137/72
--- NOTE | 2022-05-22 18:46 | Progress Note ---
Subjective Date Seen by a Provider: May 22, 2022 Time Seen by a Provider: 18:00 Subjective/Events-last exam doing better. pain better controlled. no fever/chills. WBC improving. having multiple loose stools. Objective Exam Vital Signs Date Time Temp Pulse Resp B/P (MAP) Pulse Ox O2 Delivery O2 Flow Rate FiO2 05/22/22 15:46 36.9 111 20 137/72 (93) 92 Room Air 05/22/22 11:46 36.8 85 18 111/52 (71) 99 Room Air 05/22/22 07:34 37.9 107 18 114/56 (75) 94 Nasal Cannula 2.00 05/22/22 03:25 36.2 98 18 123/62 (82) 95 Nasal Cannula 2.00 05/21/22 23:03 37.8 95 18 95/62 (73) 95 Nasal Cannula 2.00 05/21/22 19:50 Room Air 05/21/22 19:34 36.5 102 20 128/85 (99) 92 Nasal Cannula 2.00 I & O 05/22/22 07:00 Intake Total 900 ml Balance 900 ml Capillary Refill : Less Than 3 Seconds General Appearance: No Apparent Distress Neck: Full Range of Motion Respiratory: Chest Non Tender Cardiovascular: Regular Rate, Rhythm Gastrointestinal: normal bowel sounds, soft, tenderness Extremity: Normal Capillary Refill Neurologic/Psychiatric: Alert, Oriented x3 Skin: Normal Color Lymphatic: No Adenopathy Results Lab Laboratory Tests 05/22/22 05:23: White Blood Count 17.1H, Red Blood Count 3.30L, Hemoglobin 10.5L, Hematocrit 32L , Mean Corpuscular Volume 97, Mean Corpuscular Hemoglobin 32, Mean Corpuscular Hemoglobin Concent 33, Red Cell Distribution Width 13.1, Platelet Count 243, Mean Platelet Volume 9.8, Immature Granulocyte % (Auto) 1, Neutrophils (%) (Auto) 89H, Lymphocytes (%) (Auto) 5L, Monocytes (%) (Auto) 4, Eosinophils (%) (Auto) 1, Basophils (%) (Auto) 0, Neutrophils # (Auto) 15.3H, Lymphocytes # (Au to) 0.8L, Monocytes # (Auto) 0.6, Eosinophils # (Auto) 0.2, Basophils # (Auto) 0.1, Immature Granulocyte # (Auto) 0.1, Sodium Level 140, Potassium Level 3.2L, Chloride Level 106, Carbon Dioxide Level 21, Anion Gap 13, Blood Urea Nitrogen 18, Creatinine 0.66, Estimat Glomerular Filtration Rate 107, BUN/Creatinine Ratio 27, Glucose Level 87, Calcium Level 8.9, Corrected Calcium 9.8, Magnesium Level 1.7, Total Bilirubin 0.5, Aspartate Amino Transf (AST/SGOT) 12, Alanine Aminotransferase (ALT/SGPT) 23, Alkaline Phosphatase 54, Total Protein 6.1L, Albumin 2.9L Microbiology 05/19/22 MRSA Screen - Final, Complete MRSA not isolated 05/18/22 Blood Culture - Preliminary, Resulted No growth 05/18/22 Urine Culture - Final, Complete 3 or more isolates Assessment/Plan Assessment/Plan Assess & Plan/Chief Complaint sigmoid diverticulitis. cont IV abx for now. switch to PO tomorrow. advance to dys3 diet. HILLAYR GLYNN MD May 22, 2022 18:46
[2022-05-22 19:44] VITALS: BP 134/63
[2022-05-22] MEDS: ENOXAPARIN 40 MG/0.4 ML (LOVENOX) SYR SC SCH (20:24)
[2022-05-22] MEDS ORDERED: meTOproloL SUCCINATE 50 MG (TOPROL XL) TAB PO SCH (21:00)
[2022-05-22 23:49] VITALS: BP 107/55
[2022-05-23] MEDS: ACETAMINOPHEN 325 MG TABLET PO PRN (01:14)
[2022-05-23] MEDS: ONDANSETRON 4 MG/2 ML (SDV) Z0FRAN IV PRN (01:50)
[2022-05-23 03:59] VITALS: BP 106/52
[2022-05-23] MEDS: metroNIDAZOLE 500MG/100ML IVPB 100 ML IV SCH (05:32)
[2022-05-23 05:50] LABS: BASOPHILS % (AUTO) 0 % (0-10); EOSINOPHILS # (AUTO) 0.1 10^3/uL (0.0-0.3); EOSINOPHILS % (AUTO) 1 % (0-10); HEMATOCRIT 31 % (35-52); HEMOGLOBIN 10.5 g/dL (11.5-16.0); LYMPHOCYTES # (AUTO) 0.5 10^3/uL (1.0-4.0); LYMPHOCYTES % (AUTO) 4 % (12-44); MEAN CORPUSCULAR HEMOGLOBIN 32 pg (25-34); MEAN CORPUSCULAR HGB CONC 34 g/dL (32-36); MEAN CORPUSCULAR VOLUME 95 fL (80-99); MEAN PLATELET VOLUME 9.9 fL (9.0-12.2); MONOCYTES # (AUTO) 0.5 10^3/uL (0.0-1.0); MONOCYTES % (AUTO) 4 % (0-12); NEUTROPHILS % (AUTO) 89 % (42-75); PLATELET COUNT 229 10^3/uL (130-400); WHITE BLOOD COUNT 13.5 10^3/uL (4.3-11.0)
[2022-05-23 05:58] LABS: ALBUMIN 2.5 GM/DL (3.2-4.5); POTASSIUM 2.7 MMOL/L (3.6-5.0)
[2022-05-23 06:00] LABS: CALCIUM 8.3 MG/DL (8.5-10.1)
[2022-05-23 06:01] LABS: TOTAL PROTEIN 5.2 GM/DL (6.4-8.2)
[2022-05-23 06:03] LABS: BILIRUBIN,TOTAL 0.8 MG/DL (0.1-1.0)
[2022-05-23 06:04] LABS: CREATININE SERUM 0.75 MG/DL (0.60-1.30)
[2022-05-23 06:07] LABS: MAGNESIUM 1.5 MG/DL (1.6-2.4)
[2022-05-23] MEDS ORDERED: MAGNESIUM 1 GM/100 ML IVPB 100 ML IV ONE (07:30)
[2022-05-23] MEDS ORDERED: KCL 20 MEQ TAB (K-DUR) PO NR ×2 (07:30→12:15)
[2022-05-23] MEDS: PANTOPRAZOLE 40 MG (PROTONIX) VIAL IV SCH (08:18)
[2022-05-23] MEDS: NICOTINE 21 MG (NICODERM) PATCH TD SCH (08:19)
[2022-05-23] MEDS: DOCUSATE SODIUM 100 MG (COLACE) CAP PO SCH (08:20)
[2022-05-23] MEDS: POTASSIUM CL 10MEQ/50ML IVPB 50 ML IV SCH ×4 (08:20→12:13)
[2022-05-23] MEDS: NICOTINE PATCH REMOVAL TP SCH (08:20)
[2022-05-23] MEDS: PIPERACILLIN SODIUM/TAZOBACTAM 4.5 GM in NS (IVPB) 100 ML IV SCH (08:20)
[2022-05-23 08:28] VITALS: BP 81/52
[2022-05-23] MEDS: CATHETER FLUSH 10 ML SYR IV PRN (11:14)
[2022-05-23] MEDS ORDERED: HOLD METFORMIN - RECEIVED CONTRAST 20 ML VIAL IV SCH (11:15)
[2022-05-23] MEDS ORDERED: IOHEXOL 350 MG/ML 100 ML (OMNIPAQUE 350) VIAL IV ONE (11:15)
[2022-05-23] MEDS ORDERED: NS 100 ML (IVPB) BAG IV ONE (11:15)
[2022-05-23] MEDS ORDERED: CATHETER FLUSH 10 ML SYR IV PRN (11:15)
[2022-05-23 12:10] VITALS: BP 93/56
--- NOTE | 2022-05-23 12:47 | Progress Note ---
Subjective Date Seen by a Provider: May 23, 2022 Time Seen by a Provider: 12:30 Subjective/Events-last exam doing ok. had fever last night. tolerating diet. pain controlled. Objective Exam Vital Signs Date Time Temp Pulse Resp B/P (MAP) Pulse Ox O2 Delivery O2 Flow Rate FiO2 05/23/22 12:10 36.6 93 18 93/56 (68) 97 Room Air 05/23/22 08:28 36.6 97 18 81/52 (62) 91 Room Air 05/23/22 08:00 91 Room Air 05/23/22 03:59 36.4 106 20 106/52 (70) 91 Room Air 05/23/22 02:35 37.0 05/23/22 01:14 38.0 05/22/22 23:49 36.9 103 18 107/55 (72) 90 Room Air 05/22/22 20:00 Room Air 05/22/22 19:44 37.6 114 18 134/63 (86) 93 Room Air 05/22/22 15:46 36.9 111 20 137/72 (93) 92 Room Air I & O 05/23/22 07:00 Intake Total 2660 ml Output Total 5 ml Balance 2655 ml Capillary Refill : Less Than 3 Seconds General Appearance: No Apparent Distress HEENT: PERRL/EOMI Neck: Full Range of Motion Respiratory: Chest Non Tender Cardiovascular: Regular Rate, Rhythm Gastrointestinal: normal bowel sounds, soft, tenderness Extremity: Normal Capillary Refill Neurologic/Psychiatric: Alert, Oriented x3 Skin: Normal Color Lymphatic: No Adenopathy Results Lab Laboratory Tests 05/23/22 05:29: White Blood Count 13.5H, Red Blood Count 3.27L, Hemoglobin 10.5L, Hematocrit 31L , Mean Corpuscular Volume 95, Mean Corpuscular Hemoglobin 32, Mean Corpuscular Hemoglobin Concent 34, Red Cell Distribution Width 13.1, Platelet Count 229, Mean Platelet Volume 9.9, Immature Granulocyte % (Auto) 2, Neutrophils (%) (Auto) 89H, Lymphocytes (%) (Auto) 4L, Monocytes (%) (Auto) 4, Eosinophils (%) (Auto) 1, Basophils (%) (Auto) 0, Neutrophils # (Auto) 12.0H, Lymphocytes # (Auto) 0.5L, Monocytes # (Auto) 0.5, Eosinophils # (Auto) 0.1, Basophils # (Auto) 0.0, Immature Granulocyte # (Auto) 0.3H, Sodium Level 138, Potassium Level 2.7L, Chloride Level 104, Carbon Dioxide Level 24, Anion Gap 10, Blood Urea Nitrogen 18, Creatinine 0.75, Estimat Glomerular Filtration Rate 97, BUN/Creatinine Ratio 24, Glucose Level 92, Calcium Level 8.3L, Corrected Calcium 9.5, Magnesium Level 1.5L, Total Bilirubin 0.8, Aspartate Amino Transf (AST/SGOT) 16, Alanine Aminotransferase (ALT/SGPT) 19, Alkaline Phosphatase 75, Total Protein 5.2L, Albumin 2.5L Microbiology 05/19/22 MRSA Screen - Final, Complete MRSA not isolated 05/18/22 Blood Culture - Preliminary, Resulted No growth 05/18/22 Urine Culture - Final, Complete 3 or more isolates Assessment/Plan Assessment/Plan Assess & Plan/Chief Complaint sigmoid diverticulitis. cont IV abx for now. switch to PO tomorrow. advance to dys3 diet. repeat CT looks ok. will recommend PO abx and pain meds and low residue diet for next 6 weeks. will have pt f/u in 2 weeks. HILLARY GLYNN MD May 23, 2022 12:47
--- NOTE | 2022-05-23 14:54 | Diagnostic Imaging Report ---
PROCEDURE: CT abdomen and pelvis with and without contrast. TECHNIQUE: Precontrast acquisitions were acquired through the abdomen and pelvis. Multiple contiguous axial images were obtained through the abdomen and pelvis after the administration of intravenous contrast. Auto Exposure Controls were utilized during the CT exam to meet ALARA standards for radiation dose reduction. INDICATION: Adrenal mass. Its compared with routine contrast-enhanced CT 05/18/2022. FINDINGS: Low-density nodular thickening of the bilateral adrenal glands present with precontrast enhanced densities of less than 10 Hounsfield units and on the delayed washout there was near complete washout of contrast from both adrenals consistent with adenomatous hyperplasia. There is no suspicious appearing adrenal mass. There are scattered bubbles of extraluminal gas and pneumoperitoneum having developed in the interim hollow visceral perforation cannot be excluded if there has not been interval surgery. There is also increased diffuse hazy stranding and increased density throughout the abdominal pelvic mesenteric fat and suspicious for peritonitis. Gas debris collection in the right hemipelvis right of the lower sigmoid colon has developed suspicious for small abscess measuring 5.1 x 2.9 cm on image 144 series 2. The presacral and remaining perisigmoidal and perirectal markedly edematous stranding and infiltration itself however has improved locally at that level. There is no bowel obstruction. Gallbladder absent or contracted. There is a small volume perihepatic and perisplenic free fluid as a new finding. No other loculated collection. Pancreas nonacute. No bile duct dilatation. The spleen normal in size. There is nonobstructing right renal calculi with no hydroureteronephrosis. Stomach is not pathologically distended. The atherosclerotic aorta nonaneurysmal. There is fluid within the lumen of the colon and the small bowel diffusely is mildly ectatic without focal transition zone. IMPRESSION: 1. Pneumoperitoneum is a new finding suspicious for hollow visceral perforation, correlate with any interval intervention. Small volume free fluid, gastric debris collection in the right hemipelvis the latter presumed abscess however the more extensive perirectal stranding and presacral edema present on the prior has improved. 2. However more diffuse stranding and increased density throughout the abdominal pelvic mesenteric fat is suspect for peritonitis and small bowel enteritis suspected. No transition zone or overt obstruction. 3. Low-density adrenal nodularity shows near complete washout on the delayed images consistent with benign adenomatous changes. Report was faxed and called to [facility] nurse gordo Galloway at 2:53pm. Dictated by: Dictated on workstation # [id number]
[2022-05-23 15:00] VITALS: BP 111/59
[2022-05-23] MEDS ORDERED: TRM50T PO (15:29)
[2022-05-23] MEDS ORDERED: AMOX1TAB12 PO (15:32)
--- NOTE | 2022-05-23 15:42 | Discharge Summary ---
Discharge Summary Hospital Course Problems/Diagnosis: (1) Diverticulitis of intestine Status: Acute Assessment & Plan: CT on admit with diverticulitis without abscess or perforation. Slow improvement, leukocytosis decreased but not resolved. Continued on Zosyn since admission. On 05/23, WBC down to 13, but persistent fever, so repeat CT done which did show pneumoperitoneum and abscess, however patient clinically had less pain and was tolerating soft diet. Dr. Bloom felt she may have had a perf earlier in the course and was past the worse and could continue with oral antibiotics. Given that patient was febrile in last 24 hours as well as mildly tachycardic and occasional low BP, a latic acid was rechecked which was normal. Pt informed that I thought we should observe for another night given the CT findings and vitals, she adamantly refused. Rather than send her without antibiotics, given her clinical improvement, I did discharge her with Augmentin and 10 tramadol, rather than requiring her to leave AMA. Qualifiers: Qualified Codes: K57.32 - Diverticulitis of large intestine without perforation or abscess without bleeding (2) Severe sepsis Status: Acute Assessment & Plan: Secondary to diverticulitis, see above. (3) Mass of both adrenal glands Status: Acute Assessment & Plan: Incidental on initial CT scan, but indeterminate and dedicated CT with and without contrast was recommended. CT on 05/23/22 of abdomen/pelvis with and without contrast draft read "Low-density nodular thickening of the bilateral adrenal glands present with precontrast enhanced densities of less than 10 Hounsfield units and on the delayed washout there was near complete washout of contrast from both adrenals consistent with adenomatous hyperplasia. There is no suspicious appearing adrenal mass." Hospital Course Date of Admission: May 18, 2022 at 21:30 Admission Diagnosis : Family Physician/Provider: Estephanie,Local Physician Date of Discharge: 05/23/22 Discharge Diagnosis: See problem list Hospital Course: See problem list Labs and Pending Lab Test: Laboratory Tests 05/23/22 05:29: White Blood Count 13.5H, Red Blood Count 3.27L, Hemoglobin 10.5L, Hematocrit 31L , Mean Corpuscular Volume 95, Mean Corpuscular Hemoglobin 32, Mean Corpuscular Hemoglobin Concent 34, Red Cell Distribution Width 13.1, Platelet Count 229, Mean Platelet Volume 9.9, Immature Granulocyte % (Auto) 2, Neutrophils (%) (Auto) 89H, Lymphocytes (%) (Auto) 4L, Monocytes (%) (Auto) 4, Eosinophils (%) (Auto) 1, Basophils (%) (Auto) 0, Neutrophils # (Auto) 12.0H, Lymphocytes # (Auto) 0.5L, Monocytes # (Auto) 0.5, Eosinophils # (Auto) 0.1, Basophils # (Auto) 0.0, Immature Granulocyte # (Auto) 0.3H, Sodium Level 138, Potassium Level 2.7L, Chloride Level 104, Carbon Dioxide Level 24, Anion Gap 10, Blood Urea Nitrogen 18, Creatinine 0.75, Estimat Glomerular Filtration Rate 97, BUN/Creatinine Ratio 24, Glucose Level 92, Calcium Level 8.3L, Corrected Calcium 9.5, Magnesium Level 1.5L, Total Bilirubin 0.8, Aspartate Amino Transf (AST/SGOT) 16, Alanine Aminotransferase (ALT/SGPT) 19, Alkaline Phosphatase 75, Total Protein 5.2L, Albumin 2.5L 05/23/22 13:58: Lactic Acid Level 1.25 Microbiology 05/19/22 MRSA Screen - Final, Complete MRSA not isolated 05/18/22 Blood Culture - Preliminary, Resulted No growth 05/18/22 Urine Culture - Final, Complete 3 or more isolates Home Meds Active Amox Tr-K Clv 875-125 mg Tab (Amoxicillin/Potassium Clav) 875 Mg-125 Mg Tablet 1 Each PO BID Tramadol HCl 50 Mg Tablet 50 Mg PO Q6H PRN Reported Ventolin Hfa (Albuterol Sulfate) 90 Mcg Hfa.aer.ad 2 Puff INH Q6H PRN Clonazepam 0.5 Mg Tablet 0.5 Mg PO DAILY PRN Assessment/Pt DC Instructions Follow up with Dr. Bloom in 2 weeks. Follow up with primary doctor within 48 hours. Discharge Diet: Low Residue Activity as Tolerated: Yes Discharge Physical Examination Allergies: Coded Allergies: No Known Drug Allergies (Unverified , 04/08/22) General Appearance: No Apparent Distress, WD/WN Respiratory: Lungs Clear, Normal Breath Sounds Cardiovascular: Regular Rate, Rhythm, No Murmur Gastrointestinal: Normal Bowel Sounds, Non Tender, Soft Skin: Normal Color, Warm/Dry Neurologic/Psychiatric: Alert, Normal Mood/Affect HARINI MOHAMUD MD May 23, 2022 15:38
[2022-05-23 16:15] VITALS: BP 111/59
[2022-05-24] MEDS ORDERED: PANTOPRAZOLE 40 MG (PROTONIX) TAB PO SCH (09:00)
== END 2022-05-23 16:15 | disposition home or self-care (01) | DRG 872 ==
LOC: EDUNIT# 17:07 → ER FS 17:09 → ICU 21:30 → 4TH 05-19 11:43
PROVIDERS: ADMIT Internal Medicine; ATTEND Family Medicine
DX: A41.9 Sepsis, unspecified organism (principal); K57.32 Diverticulitis of large intestine without perforation or abscess without bleeding; R65.20 Severe sepsis without septic shock; E27.9 Disorder of adrenal gland, unspecified; F17.210 Nicotine dependence, cigarettes, uncomplicated; Z20.822 Contact with and (suspected) exposure to COVID-19
CPT/HCPCS: 36415; 71045; 74177; 74178; 80053; 81000; 83605; 83735; 84100; 85007; 85025; 85027; 85610; 85730; 87040; 87081; 87088; 87636; 94640; 94760; Q9967